=== PATIENT | male | born 1960 | race Caucasian/White ===

== ENCOUNTER 2020-10-23 19:07 | Emergency (ER) | payer MEDICARE, MEDICAID, SELFPAY ==
[2020-10-23 19:13] VITALS: BP 117/68; BP 125/64; PULSE 65; PULSE 72; RESP 18; TEMP 36.8; O2SAT 98; O2SAT 99; BMI 23.0
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
[2020-10-23 20:00] VITALS: BP 134/84; PULSE 81; RESP 18; O2SAT 99
[2020-10-23 20:15] LABS: Appearance Urine CLEAR; Color Urine YELLOW; Glucose Urine UA NEG (NEG); Leukocyte Esterase Urine NEG (NEG); Nitrite Urine NEG (NEG); PH 6.5 (5.0-8.0); Urine Blood NEG (NEG); Urine Ketones NEG (NEG); Urine Protein NEG (NEG-TRACE)
--- NOTE | 2020-10-23 20:24 | ECG_ITS ---
Test Reason : AMS Blood Pressure : / mmHG Vent. Rate : 074 BPM Atrial Rate : 074 BPM P-R Int : 158 ms QRS Dur : 080 ms QT Int : 396 ms P-R-T Axes : 069 006 044 degrees QTc Int : 439 ms Normal sinus rhythm Normal ECG When compared with ECG of 17-MAY-2007 10:06, QT has lengthened Referred By: Rudy Wolf Electronically Signed By:Brandt Bassett
--- NOTE | 2020-10-23 20:24 | CT_ITS ---
EXAMINATION: CT HEAD WITHOUT CONTRAST CLINICAL INFORMATION: Mental status change COMPARISON: MRI of the brain 02/02/2016 TECHNIQUE: Contiguous axial imaging was performed from the skull base to vertex without intravenous administration of contrast. Coronal and sagittal reformatted images are performed at CT scanner This CT examination was performed using dose optimization techniques as appropriate, variously including the following: *Automated exposure control *Adjustment of mA and/or kV according to patient size (this includes techniques or standardized protocols for targeted exams where dose is matched to indication/reason for exam; i.e. extremities or head) *Use of iterative reconstruction technique DLP: 659 mGy-cm FINDINGS: There is no evidence of acute intracranial hemorrhage or territorial infarction. No abnormal mass effect or midline shift is seen. [place] to white matter differentiation is well preserved. No extra-axial fluid collections are identified. There is atrophy with prominence of the ventricles and the sulci and hypodensity of the periventricular white matter due to chronic small vessel ischemic disease. There are vascular calcifications of the internal carotid arteries bilaterally. The osseous structures and soft tissues are normal. The mastoid air cells and visualized portions of the paranasal sinuses are well aerated. CT/CT head/brain wo con IMPRESSION: No acute intracranial pathology.
--- NOTE | 2020-10-23 20:24 | XR_ITS ---
EXAMINATION: XR CHEST CLINICAL INFORMATION: Mental status change COMPARISON: None TECHNIQUE: Frontal portable view of the chest was obtained. 2030 hours FINDINGS: No significant abnormality is noted involving the heart, lungs, mediastinum, bony thorax or soft tissues. XR/XR chest 1V IMPRESSION: Unremarkable examination.
[2020-10-23 20:37] LABS: RBC Urine 0 /HPF (0); WBC Urine 0 /HPF (0-4)
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
[2020-10-23 20:54] LABS: Amphetamine Screen Urine Not Detected (Not Detect); Barbiturates, Urine Not Detected (Not Detect); Benzodiazepines Screen Urine Not Detected (Not Detect); Cannabinoid Screen Urine Not Detected (Not Detect); Cocaine Screen Urine Not Detected (Not Detect); Opiate Screen Urine Not Detected (Not Detect); Phencyclidine Screen Urine Not Detected (Not Detect)
[2020-10-23 21:05] LABS: MANUAL DIFF FLAG NO
[2020-10-23 21:09] LABS: Basophils Percent Auto 0.4 % (0-2); Eosinophils Absolute Auto 0.2 X10*3/uL (0.0-0.4); Eosinophils Percent Auto 3.8 % (0-4); Hematocrit 30.4 % (42-52); Hemoglobin 10.1 g/dl (14.0-18.0); Imm Gran Abs Auto 0.01 X10*3/uL (0.00-0.03); Imm Gran Pct Auto 0.2 % (0.0-0.4); Lymphocytes Absolute Auto 1.6 X10*3/uL (1.2-4.9); Lymphocytes Percent Auto 29.4 % (20-40); Mean Corpuscular HGB Conc 33.2 g/dl (31.0-36.0); Mean Corpuscular Hemoglobin 29.7 pg (27.0-33.0); Mean Corpuscular Volume 89.4 fL (80-98); Mean Platelet Volume 9.4 fL (9.4-12.4); Monocytes Absolute Auto 0.7 X10*3/uL (0.1-1.2); Monocytes Percent Auto 12.6 % (2-11); Neutrophils Absolute Auto 2.9 X10*3/uL (2.0-8.3); Neutrophils Percent Auto 53.6 % (45-73); Platelet Count 161 X10*3/uL (160-400); Red Cell Distribution Width 14.5 % (11.0-16.0); White Blood Count 5.3 X10*3/uL (4.8-10.8)
[2020-10-23] MEDS: 0.9 % Sodium Chloride 1,000 ML 999 ML IVCONT (21:30)
[2020-10-23 21:31] LABS: Ethanol < 10 mg/dL
[2020-10-23 21:40] LABS: B Type Natriuretic Peptide 69 pg/mL (<100); Troponin-I High Sensitivity 5.8 ng/L (<3.5-35.0)
[2020-10-23 21:51] LABS: Alanine Aminotransferase 15 U/L (0-40); Albumin Level 3.4 g/dL (3.5-5.0); Alkaline Phosphatase 92 U/L (39-117); Anion Gap 11 (12-20); Aspartate Amino Transferase 20 U/L (5-37); Bilirubin Direct < 0.2 mg/dL (0.0-0.5); Bilirubin Total < 0.2 mg/dL (0.0-1.0); Blood Urea Nitrogen 27 mg/dL (9-16); Calcium 7.8 mg/dL (8.4-10.2); Carbon Dioxide 25 mmol/L (22-29); Chloride 107 mmol/L (96-108); Creatinine Clr Calc Pharmacy 71.2; Estimated Glomerular Filt Rate > 60; Glucose Random 115 mg/dL (60-115); Lipase 35 U/L (8-78); Potassium 3.8 mmol/l (3.3-5.1); Sodium 139 mmol/L (135-145); Total Protein 5.6 g/dL (6.5-8.0)
[2020-10-23 22:00] VITALS: BP 127/58; PULSE 82; RESP 18; TEMP 36.8; O2SAT 98
[2020-10-23 22:30] LABS: COVID-19 Test Negative (Negative); IDNOW Serial# 9DD0AD1C
== END 2020-10-23 23:29 | disposition home or self-care (01) ==
PROVIDERS: Emergency Provider Emergency Medicine
DX: R41.82 Altered mental status, unspecified (principal); Z20.822 Contact with and (suspected) exposure to COVID-19
CPT/HCPCS: 36415; 70450; 71045; 80048; 80076; 80307; 80320; 81001; 83690; 83880; 84484; 85025; 87635; 93005; 96360; 99284

== ENCOUNTER 2021-03-18 10:19 | Emergency (ER) | payer MEDICARE, MEDICAID, SELFPAY ==
--- NOTE | ~2021-03-18 | CT_ITS ---
EXAMINATION: CT HEAD WITHOUT CONTRAST CLINICAL INFORMATION: Confusion. COMPARISON: CT brain 10/23/2020 TECHNIQUE: Contiguous axial imaging was performed from the skull base to vertex without intravenous administration of contrast. This CT examination was performed using dose optimization techniques as appropriate, variously including the following: *Automated exposure control *Adjustment of mA and/or kV according to patient size (this includes techniques or standardized protocols for targeted exams where dose is matched to indication/reason for exam; i.e. extremities or head) *Use of iterative reconstruction technique DLP: 661 mGy-cm FINDINGS: There is no evidence of acute intracranial hemorrhage or territorial infarction. No abnormal mass effect or midline shift is seen. [place] to white matter differentiation is well preserved. No extra-axial fluid collections are identified. Lateral ventricles are symmetrical but enlarged. [place] to white matter difference is maintained normal. The osseous structures and soft tissues are normal. The mastoid air cells and visualized portions of the paranasal sinuses are well aerated. CT/CT head/brain wo con IMPRESSION: No acute intracranial process seen. No major change compared to previous study on 06/04/2021.
[2021-03-18 10:25] VITALS: BP 111/68; BP 111/78; PULSE 70; PULSE 71; RESP 16; TEMP 36.4; O2SAT 96; BMI 26.6
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
[2021-03-18 11:34] LABS: MANUAL DIFF FLAG NO
[2021-03-18 11:38] LABS: Amphetamine Screen Urine Not Detected (Not Detect); Barbiturates, Urine Not Detected (Not Detect); Benzodiazepines Screen Urine Not Detected (Not Detect); Cannabinoid Screen Urine Not Detected (Not Detect); Cocaine Screen Urine Not Detected (Not Detect); Opiate Screen Urine Not Detected (Not Detect); Phencyclidine Screen Urine Not Detected (Not Detect)
[2021-03-18 11:39] LABS: Basophils Percent Auto 0.5 % (0-2); Eosinophils Absolute Auto 0.1 X10*3/uL (0.0-0.4); Eosinophils Percent Auto 2.1 % (0-4); Hemoglobin 13.2 g/dl (14.0-18.0); Imm Gran Abs Auto 0.01 X10*3/uL (0.00-0.03); Imm Gran Pct Auto 0.3 % (0.0-0.4); Lymphocytes Absolute Auto 1.2 X10*3/uL (1.2-4.9); Lymphocytes Percent Auto 30.6 % (20-40); Mean Corpuscular Volume 84.9 fL (80-98); Mean Platelet Volume 9.5 fL (9.4-12.4); Monocytes Absolute Auto 0.4 X10*3/uL (0.1-1.2); Monocytes Percent Auto 11.1 % (2-11); Neutrophils Absolute Auto 2.1 X10*3/uL (2.0-8.3); Neutrophils Percent Auto 55.4 % (45-73); Platelet Count 158 X10*3/uL (160-400); Red Blood Count 4.71 X10*6/uL (4.60-5.80); Red Cell Distribution Width 13.9 % (11.0-16.0); White Blood Count 3.9 X10*3/uL (4.8-10.8)
[2021-03-18 11:54] LABS: COVID-19 Test Negative (Negative)
[2021-03-18 11:58] LABS: Ammonia 29 umol/L (13-55)
[2021-03-18 12:06] LABS: Alanine Aminotransferase 10 U/L (0-40); Albumin Level 4.2 g/dL (3.5-5.0); Alkaline Phosphatase 73 U/L (39-117); Anion Gap 10 (12-20); Aspartate Amino Transferase 12 U/L (5-37); Bilirubin Direct 0.2 mg/dL (0.0-0.5); Bilirubin Total 0.7 mg/dL (0.0-1.0); Blood Urea Nitrogen 19 mg/dL (9-16); Calcium 9.3 mg/dL (8.4-10.2); Carbon Dioxide 30 mmol/L (22-29); Chloride 104 mmol/L (96-108); Creatinine Clr Calc Pharmacy 53.9; Estimated Glomerular Filt Rate > 60; Glucose Random 91 mg/dL (60-115); Lipase 28 U/L (8-78); Potassium 4.5 mmol/L (3.3-5.1); Sodium 139 mmol/L (135-145); Total Protein 6.7 g/dL (6.5-8.0)
--- NOTE | 2021-03-18 12:32 | PC.NURSE ---
Pt medically cleared, faxed and called.
[2021-03-18 16:13] VITALS: BP 127/62; PULSE 60; RESP 16; TEMP 36.3; O2SAT 96
--- NOTE | 2021-03-18 18:24 | MHC.CARE ---
PT is awaiting [facility] Assessment. CARE Team spoke with [facility] to obtain information. Per Danielle at [facility], they are requesting a crisis assessment prior to Pt returning back to the facility. Pt is currently on a bed hold and welcome back. Pt was not re-directable today and became aggressive when attempting to elope. Pt is not currently on locked dementia unit which is ultimately the plan however has been difficult finding a different placement as Pt and family want him to be closer to the [place] area. Pt has an invoked HCP. Please follow up with Roseann and/or Danielle at [facility] [phone]
[2021-03-19 06:16] VITALS: BP 118/64; PULSE 68; RESP 16; TEMP 36.6; O2SAT 94
[2021-03-19 07:55] VITALS: BP 126/83; PULSE 67; RESP 19; TEMP 36.5; O2SAT 99
--- NOTE | 2021-03-19 07:56 | PC.NURSE ---
Spoke with OSWALDO, Ag states someone will be out to evaluate Carlos on first shift today. Pt calm, cooperative at this time. Will continue to monitor.
[2021-03-19 12:27] LABS: Glucose Urine UA NEG (NEG); Leukocyte Esterase Urine NEG (NEG); Nitrite Urine NEG (NEG); Specific Gravity - Urine 1.015 (1.005-1.025); Urine Blood NEG (NEG); Urine Ketones NEG (NEG); Urine Protein NEG (NEG-TRACE)
[2021-03-19 12:30] LABS: Appearance Urine CLEAR; Color Urine YELLOW
--- NOTE | 2021-03-19 16:29 | MHC.CARE ---
CARE Team meets with pt for assessment, as the local [facility] team is not able to respond. Pt is laying in bed, watching TV. Per nursing staff and chart review, pt has been calm, cooperative and pleasant throughout his time in the ED. He was sent from [facility] due to increased agitation/ aggressive toward staff. CARE Team speaks with Danielle from [facility], who reports that pt is confused and disoriented at baseline due to dementia. Danielle states that pt becomes dysregulated when he gets confused, attempts to leave the unit, and is redirected by staff. During these instances he can becomes aggressive with staff and yells. Danielle does not feel that [facility] can provide the care that pt needs. Danielle states that she attempted to have pt transferred to a facility in [place], [place] with a locked unit, however, family did not want pt placed that far away. When CARE Team meets with pt is oriented to person only. He knows he is in a hospital, but does not know where. When asked the year he states, January I think. He does not know why he is here, but acknowledges that he was upset prior to coming to the ED. He expresses remorse, however, cannot recall what he did. He states I am a peaceful person and I am a [employer]. When asked if he would like to return to [facility], he states that he does not know. He denies SI/HI/AVH. Pt does not meet criteria for IPLOC. Psychiatric admission is not likely to midigate prsenting problems, which relate to worsening dementia. CARE Team makes several attempts to reach out to pt's brother, Easton, who is the health care proxy. Danielle from [facility] states that she does not feel that [facility] is a good fit for pt and she is wondering if a placement change can be made from the ED. CARE Team speaks with WINSOME Nath, who agrees that pt should be seen by case management. CARE Team communicates relevant information to Mary Grace from [facility].
--- NOTE | 2021-03-19 16:31 | PC.NURSE ---
Pt sitting in room calmly. No sign of distress at this time. Respirations even/unlabored bilaterally. Will continue to monitor.
--- NOTE | 2021-03-19 17:16 | MHC.CM.ED ---
Unable to reach Danielle at [facility], despite 2 calls. Unable to reach HCP Easton. Unable to leave message. Return booked through [facility]. [facility] accepted pt return. Ambulance booked. Upon further investigation, CM is unsure if facility will accept pt return. Will hold ambulance until able to reach someone from [facility]. RN aware.
--- NOTE | 2021-03-19 18:09 | MHC.CM.ED ---
ALESSANDRO made calls to Danielle at [facility] at [phone] and [phone] regarding clearance for pt to return to [facility] based on previous CARE team notes about concerns that pt needs a locked unit. ORE TRIMMER and RN aware that pt will remain in ED pending pt acceptance cleared from Danielle at [facility]. CM spoke with HCP/brother Easton regarding above at 1755. Per Easton, he makes the health care decisions, as the HCP has been invoked. [facility] explained concerns regarding whether or not [facility] was accepting his brother back to the facility, since there was documentation in the record that [facility] felt his brother needed a locked unit. Easton is agreeable to having his brother go to a locked unit, but he wants him local, so he can visit him. Explained that not all facilities have locked units. ALESSANDRO explained to Easton that it would be best to first see if [facility] will accept him back. If not, then referrals can be placed to facilities with locked units. Easton requests that CM call him when we know where his brother will be going. Easton given direct number to reach CM in the ED. CM will follow for d/c needs.
[2021-03-19 18:30] VITALS: BP 142/97; PULSE 86; RESP 20; TEMP 36.4; O2SAT 98
--- NOTE | 2021-03-19 20:13 | MHC.CM.ED ---
CM has not received return call from [facility]. Will need to reach out in the am to [facility] to confirm that pt can return to facility. NANCI Delgado spoke with pt about need to remain in ED tonight. CM to follow for d/c needs.
--- NOTE | 2021-03-19 21:00 | PC.NURSE ---
PT WAKES TO VOICE FOR MEDICATION PER EMAR. PT DENIES ANY COMPLAINTS AND FALLS BACK TO SLEEP. PT REMAINS COOPERATIVE IN THE POD. WILL CONTINUE TO MONITOR PT.
[2021-03-19] MEDS: levETIRAcetam 500 MG TABLET PO (21:42)
[2021-03-19 22:00] VITALS: RESP 16
--- NOTE | 2021-03-19 22:39 | PC.NURSE ---
PT REMAINS SLEEPING IN BH #4. PT IN NAD AND WILL CONTINUE TO MONITOR PT.
[2021-03-20] MEDS: Omeprazole 20 MG CAPSULE.DR PO (05:35)
--- NOTE | 2021-03-20 06:02 | PC.NURSE ---
PT UP FEW TIMES DURING THE NIGHT AND ASKED THE SAME QUESTION DO YOU KNOW WHERE MY SHOES ARE AND WHEN CAN I GET DISCHARGED FROM HERE PT ALSO GETS CONFUSED WHICH ROOM IS HIS. PT IS REDIRECTED. PT REMAINS CALM AND COOPERATIVE AT THIS TIME. WILL CONTINUE TO MONITOR PT.
--- NOTE | 2021-03-20 06:05 | PC.NURSE ---
PT MEDICATED PER EMAR.
--- NOTE | 2021-03-20 07:25 | PC.NURSE ---
Pt awake and alert. Bkfst eaten. Amb to [facility]. Awaiting care team for dispo
[2021-03-20 08:45] VITALS: BP 121/71; PULSE 68; RESP 18; TEMP 36.3; O2SAT 98
[2021-03-20] MEDS: Cholecalciferol (Vitamin D3) 25 MCG TABLET PO (09:11)
[2021-03-20] MEDS: Cyanocobalamin (Vitamin B-12) 500 MCG TABLET PO (09:11)
[2021-03-20 09:12] VITALS: BP 121/71; PULSE 68
[2021-03-20] MEDS: lisinopriL 2.5 MG TABLET PO (09:12)
[2021-03-20] MEDS: Atorvastatin Calcium 10 MG TABLET PO (09:12)
[2021-03-20] MEDS: levETIRAcetam 500 MG TABLET PO (09:12)
--- NOTE | 2021-03-20 09:18 | MHC.CM.ED ---
pt is returning to [facility] at 10 am via action. attempt to call pt's brother to notify him of dc was made, however the number listing in emr was not a working number . , rn are aware of dc plan. cm to cont. to follow.
--- NOTE | 2021-03-20 09:21 | PC.NURSE ---
Call to [facility]. No answer
--- NOTE | 2021-03-21 12:22 | MHC.CM.ED ---
PT'S brother, joelle, called looking for him. he said that we had the wrong contact ph no. in our emr. the correct ph no. for joelle is ph: [phone]. cm to cont. to follow.
== END 2021-03-20 10:09 | disposition skilled nursing facility (03) ==
PROVIDERS: Emergency Provider Emergency Medicine; PCP Internal Medicine
DX: R41.82 Altered mental status, unspecified (principal); F01.50 Vascular dementia, unspecified severity, without behavioral disturbance, psychotic disturbance, mood disturbance, and anxiety; G40.909 Epilepsy, unspecified, not intractable, without status epilepticus; Z79.899 Other long term (current) drug therapy; Z20.822 Contact with and (suspected) exposure to COVID-19
CPT/HCPCS: 36415; 70450; 80048; 80076; 80307; 81003; 82140; 83690; 83735; 85025; 87635; 99285

== ENCOUNTER 2021-06-26 15:54 | Observation (INO) | payer MEDICARE, MEDICAID, SELFPAY ==
--- NOTE | ~2021-06-26 | XR_ITS ---
EXAMINATION: XR CHEST CLINICAL INFORMATION: Change in mental status. COMPARISON: Most recent prior study done on 10/23/2020. TECHNIQUE: Frontal view of the chest was obtained. FINDINGS: No significant abnormality is noted involving the heart, lungs, mediastinum, bony thorax or soft tissues. XR/XR chest 1V IMPRESSION: Unremarkable examination. No significant change since 10/23/2020.
--- NOTE | ~2021-06-26 | MR_ITS ---
MR BRAIN WITHOUT AND WITH CONTRAST CLINICAL INFORMATION: Confusion. Gait abnormality. COMPARISON: CTA head and neck and head CT 06/26/2021. TECHNIQUE: Multiplanar, multisequence MRI of the brain was obtained before and after the intravenous administration of 8.5 mL Gadavist. FINDINGS: There is no pathologic intracranial enhancement. Incidental developmental venous anomaly within the right frontal lobe. There is CSF flow artifact within the third ventricle and the fourth ventricle. 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 There is global cerebral volume loss and there is mild chronic microangiopathy. There is no hydrocephalus, extra-axial surface collection, or herniation. The major flow voids at the skull base are preserved. There is no acute infarct on diffusion-weighted imaging. There is no intracranial hemorrhage on the gradient recalled echo acquisition. The midline structures are normal. The cerebellar tonsils are normally positioned. The cerebellum and brainstem are normal. The craniocervical junction is normal. Osseous marrow signal intensity is homogenous. The visualized soft tissues are unremarkable. MR/MR head/brain wo/w con IMPRESSION: - No acute intracranial findings. No enhancing lesions. No acute infarcts. 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
--- NOTE | ~2021-06-26 | CT_ITS ---
EXAMINATION: CT HEAD WITHOUT CONTRAST (STROKE PROTOCOL) CLINICAL INFORMATION: Stroke protocol. Lack of balance, slurred speech. COMPARISON: Head CT from 03/18/2021. TECHNIQUE: Contiguous axial imaging was performed from the skull base to vertex without intravenous administration of contrast. This CT examination was performed using dose optimization techniques as appropriate, variously including the following: *Automated exposure control *Adjustment of mA and/or kV according to patient size (this includes techniques or standardized protocols for targeted exams where dose is matched to indication/reason for exam; i.e. extremities or head) *Use of iterative reconstruction technique DLP: 681 mGy-cm FINDINGS: No acute findings. The ritter-white matter differentiation is well preserved. No evidence of an acute major vascular territory infarction. No dense cerebral artery sign. No intracranial hemorrhage, extra-axial fluid collection, focal mass effect or midline shift. Mild cerebral volume loss is associated with commensurate prominence of ventricles and sulci; no hydrocephalus. The brainstem and cerebellum have a normal appearance. The cerebellar tonsils are in normal position. The calvarium is intact. The visualized paranasal sinuses, mastoid air cells and middle ear cavities are well aerated. Prior ocular lens replacements. The temporomandibular joints are unremarkable. CT/CT head for stroke IMPRESSION: No evidence of hemorrhage or acute major vascular territory infarction. No acute findings compared to the prior head CT from 03/18/2021. This critical result was discussed Dr. Fontanez at 4:17 pm on 06/26/2021. It was ascertained that the content and urgency of the report was understood at the time of direct communication.
--- NOTE | ~2021-06-26 | CT_ITS ---
EXAMINATION: CT ANGIOGRAM OF THE HEAD CT ANGIOGRAM OF THE NECK CLINICAL INFORMATION: Assess for large vessel occlusion. COMPARISON: CT scan of the head obtained earlier 06/26/2021. MRI scan of the brain 02/02/2016. TECHNIQUE: Test bolus series followed by intravenous administration 70 mL of Omnipaque 350. Helical imaging was performed in the axial plane from the mediastinum to the skull vertex. A [address] head was obtained. The degree of stenosis is based off NASCET criteria. The data was processed at the engineering technologist workstation for generation of MIP images. Three-dimensional volume rendered reformatted images were also generated at an offline 3-D workstation. This CT examination was performed using dose optimization techniques as appropriate, variously including the following: *Automated exposure control *Adjustment of mA and/or kV according to patient size (this includes techniques or standardized protocols for targeted exams where dose is matched to indication/reason for exam; i.e. extremities or head) *Use of iterative reconstruction technique DLP: 1479 mGy-cm. FINDINGS: CT Head: There is no evidence of acute intracranial hemorrhage or territorial infarction. No abnormal mass-effect or midline shift is seen. [place] to white matter differentiation is well preserved. No extra-axial fluid collections are identified. There is no abnormal enhancement. There is mild commensurate prominence of the ventricles and sulci consistent with diffuse volume loss. Brain parenchymal attenuation is unremarkable. The osseous structures and soft tissues are normal. The mastoid air cells are well-aerated. There is mucoperiosteal thickening in the right maxillary sinus. CTA Neck: There is a classic configuration of the arch of the aorta. The great vessels of the neck are widely patent. The subclavian arteries appear normal bilaterally. The common carotid arteries have normal caliber. The carotid bifurcations bilaterally appear normal. The internal carotid arteries in the neck bilaterally have uniform and normal caliber. The origins of both vertebral arteries are well seen and appear normal. Both vertebral arteries are widely patent and demonstrate good opacification throughout their cervical course. The vertebral arteries are codominant. Nonvascular: There is mild dependent atelectasis in the posterior lung zarate bilaterally. There are mild emphysematous changes bilaterally. There is no cervical lymphadenopathy. The thyroid gland appears normal. There are moderate spondylitic changes in the cervical spine with narrowing of intervertebral disc height with vacuum changes at C3-C4, C5-C6 and C6-C7. There are mild facet arthropathic changes at multiple levels. CTA Head: There are minimal atheromatous calcifications of the cavernous internal carotid arteries bilaterally. The vessels are patent. The middle and anterior cerebral arteries bilaterally demonstrate normal caliber with no evidence of focal stenosis, aneurysm or vascular malformation. There is normal arborization of the middle cerebral artery branches. The anterior communicating artery is normal. In the posterior circulation, the vertebral arteries are codominant. The vertebral arteries intradurally have normal caliber. The basilar artery appears normal. The posterior cerebral arteries have normal caliber. The venous sinuses opacify normally. CT/CT angio head neck stroke IMPRESSION: CT head and neck: 1. There are no acute bleeds or infarcts. There are no masses or areas of abnormal enhancement. 2. There is mild diffuse volume loss. 3. There is no cervical lymphadenopathy. There are emphysematous changes in the upper lung zarate. CTA head and neck: 1. The vertebral and carotid arteries in the neck, likely patent without flow-limiting stenosis. There is no significant atheromatous disease in the neck. 2. Intracranially there are no focal stenoses, aneurysms or vascular malformations. Minimal atheromatous changes are seen in the cavernous internal carotid arteries bilaterally. This critical result was discussed with Jonathon Fontanez MD by telephone on 06/26/2021 at 4:50 PM and it was ascertained that the content and urgency of the report was understood at the time of direct communication.
--- NOTE | 2021-06-26 15:58 | ECG_ITS ---
Test Reason : STROKE Blood Pressure : / mmHG Vent. Rate : 061 BPM Atrial Rate : 061 BPM P-R Int : 146 ms QRS Dur : 088 ms QT Int : 412 ms P-R-T Axes : 040 -13 031 degrees QTc Int : 414 ms Normal sinus rhythm Normal ECG When compared with ECG of 23-OCT-2020 21:22, No significant change was found Referred By: Jonathon Fontanez Electronically Signed By:CHANDRIKA BROWN
[2021-06-26 16:14] VITALS: BP 138/58; PULSE 70; O2SAT 100
[2021-06-26] MEDS: iohexoL 350 MG/ML 100 ML INFUS..BTL IV (16:14)
[2021-06-26 16:31] LABS: Glucose, Whole Blood 74 mg/dL (60-115)
[2021-06-26 16:40] LABS: Prothrombin Time Whole Bld POC 12.9 sec (11.1-13.5); ~PT, ~INR - Anti Coag Clinic 1.1 (0.9-1.1)
[2021-06-26 16:45] VITALS: BP 121/64; PULSE 63; RESP 14; TEMP 36.8; O2SAT 100; BMI 30.3
[2021-06-26 16:48] LABS: MANUAL DIFF FLAG NO
[2021-06-26 16:49] LABS: Basophils Percent Auto 0.2 % (0-2); Eosinophils Absolute Auto 0.2 X10*3/uL (0.0-0.4); Eosinophils Percent Auto 3.3 % (0-4); Hematocrit 39.6 % (42-52); Hemoglobin 13.4 g/dl (14.0-18.0); Imm Gran Abs Auto 0.01 X10*3/uL (0.00-0.03); Imm Gran Pct Auto 0.2 % (0.0-0.4); Lymphocytes Absolute Auto 1.4 X10*3/uL (1.2-4.9); Lymphocytes Percent Auto 30.7 % (20-40); Mean Corpuscular HGB Conc 33.8 g/dl (31.0-36.0); Mean Corpuscular Hemoglobin 28.6 pg (27.0-33.0); Mean Corpuscular Volume 84.4 fL (80-98); Mean Platelet Volume 9.6 fL (9.4-12.4); Monocytes Absolute Auto 0.5 X10*3/uL (0.1-1.2); Monocytes Percent Auto 11.6 % (2-11); Neutrophils Absolute Auto 2.5 X10*3/uL (2.0-8.3); Platelet Count 165 X10*3/uL (160-400); Red Blood Count 4.69 X10*6/uL (4.60-5.80); Red Cell Distribution Width 13.4 % (11.0-16.0); White Blood Count 4.6 X10*3/uL (4.8-10.8)
--- NOTE | 2021-06-26 16:57 | ED_ITS ---
HPI - Neuro Symptoms/Deficit General Chief Complaint: Stroke Stated Complaint: STROKE ALERT Time Seen by Provider: 06/26/21 15:57 Source: patient and EMS Mode of arrival: EMS Limitations: other (Patient has vascular dementia but does answer questions appropriately) History of Present Illness HPI Narrative: 61-year-old male who was brought to the emergency department by ambulance for evaluation of difficulty speaking and difficulty walking. The patient is currently at [facility] long term [facility]. The facility was unable to verify a last well-known time. The paramedics state that the patient is normally able to walk without any difficulty. The patient was found to be off balance, very unsteady on his feet and his speech seemed to be changed from his baseline. The facility was concerned that the patient had a stroke and had the patient transported to the emergency department. I evaluated the patient upon arrival. The patient was oriented to person and place. He had no complaints. His speech was comprehensible but occasionally did not make sense. The patient had normal strength bilaterally but did appear to have ataxia was upper extremities. The patient was sent directly to CT scan for stroke workup and for CT scan of the head without contrast and CT angiogram of the head and neck. Related Data Home Medications Medication Instructions Recorded Confirmed atorvastatin 10 mg tablet 10 mg PO DAILY 03/18/21 03/18/21 cholecalciferol (vitamin D3) 25 25 mcg PO DAILY 03/18/21 03/18/21 mcg (1,000 unit) tablet cyanocobalamin (vitamin B-12) 500 500 mcg PO DAILY 03/18/21 03/18/21 mcg tablet levetiracetam 500 mg tablet 500 mg PO BID 03/18/21 03/18/21 lisinopril 2.5 mg tablet 2.5 mg PO DAILY 03/18/21 03/18/21 omeprazole 20 mg capsule,delayed 20 mg PO DAILY 03/18/21 03/18/21 release vitamin B complex 1 cap PO DAILY 03/18/21 03/18/21 Allergies Allergy/AdvReac Type Severity Reaction Status Date / Time Unable to Assess Allergy Verified 10/23/20 20:05 Review of Systems Review of Systems: Yes all other systems are reviewed and are negative PMFSH Past Medical History PMF Narrative: Social history: The patient lives in a long term facility. He denies tobacco use. He denies alcohol use. He denies drug use. Medical History Epilepsy Vascular dementia Social History Social History Alcohol intake: former Patient Tobacco Use Status: Former Tobacco user Use of substances other than those prescribed or required for medical reasons: No Advance Directives: No Advance Directives Information Provided: No Physical Exam Vital Signs: Vital Signs: Last Vital Signs Temp 98.3 F 06/26/21 16:45 Pulse 63 06/26/21 16:45 Resp 14 06/26/21 16:45 BP 121/64 06/26/21 16:45 Pulse Ox 100 06/26/21 16:45 Body Mass Index 30.3 Const: Other: Awake, alert, male, oriented to person, he knows that he is at [facility], answers questions appropriately and follows commands, occasionally his answers do not make sense to the question that was asked. Orientation/consciousness: oriented to person and oriented to place HENMT: Head: Yes normal to inspection, Yes normocephalic and Yes atraumatic Ears: external ears normal General nose exam: Normal external nose present Face and sinus: Yes normal facial exam Mouth: Normal oral and palatal mucosa present Throat: Yes posterior oropharynx normal Eyes: General: appearance normal, both eyes and all related structures Pupils: Equal, round and reactive pupils present Neck: Neck: Yes normal visual inspection, Yes no lymphadenopathy, Yes trachea midline and Yes supple Chest: Chest palpation & inspection: normal inspection of the chest and normal palpation of entire chest wall Resp: Effort & Inspection: normal respiratory effort and able to speak in complete sentences Auscultation: clear to auscultation bilaterally Cardio: Rate: regular rate Rhythm: regular rhythm Heart sounds: S1 normal heart sound present, S2 normal heart sound present and no murmurs GI: Inspection: Yes normal to inspection Palpation (GI): Soft to palpation, nontender and no guarding Auscultation: normal bowel sounds : General: Yes no CVA tenderness Back/Spine/Pelvis: Back: no CVA tenderness Skin: General skin exam: no rashes or lesions noted Neuro: General: oriented to person and oriented to place Cranial nerves: Yes CN's II-XII intact bilaterally and Yes Equal, round and reactive pupils present Cognition (Neuro): normal cognition Gait exam (Neuro): Ataxic gait present and Wide-based gait present Motor exam (neuro): 5/5 motor strength present throughout Coordination: No [id number] test normal (Past pointing with both right and left upper extremity), No [id number] test normal (Patient unable to perform tasks) and No Normal rapid alternating movements of the distal upper extremity present (Neuro) Extrem: General: Yes normal to inspection Psych: Appearance: grossly normal Affect: normal affect Attitude: cooperative Course Course Course Narrative: 61 year-old male who was sent from his long term facility for change in his speech pattern and new inability to walk, patient was poor to be off balance. Patient's point of care glucose was 74. Patient's vital signs were normal. Physical examination did reveal for finger nose to finger and for rapid movement of both upper extremities, the patient was standing with a wide-based and was unable to take a step secondary to ataxia and being off balance. CT scan of the brain revealed no acute finding. CTA of the head and neck was unremarkable. Twelve EKG revealed no a arrhythmias/atrial fib /flutter. And concerned the patient may have had a cerebellar stroke given his new onset ataxia. Patient does have a seizure disorder it is possible he may have had a non witnessed seizure as well. I will discuss these findings with the covering neurologist. 1719: The patient's CT scan of the head was negative for stroke or bleed. CT a of the head and neck revealed no acute finding. I did discuss the patient's presentation with the covering neurologist, Dr. Augustin. Given the unknown last well time and the potential for this being a post seizure type symptom verses cerebellar stroke, he did not believe that the patient was a tPA candidate and I agree with this assessment. The neurologist recommended the patient be admitted for further evaluation and workup. Laboratory evaluation: CBC revealed a low WBC of 4600, mild anemia with an H&H of 13.4 and 39.6. Platelet count was normal 165,000. Coag studies were normal. CK was normal. High sensitivity troponin I was detectable at 4.0 but not elevated. Twelve EKG was unremarkable. COVID-19 test is pending. I will discuss the patient's presentation with the covering hospitalist. 1935: I did discuss the patient's presentation with the covering hospitalist, Dr. Camilo and the patient will be admitted for further evaluation. MDM - Neuro Symptoms/Deficit Lab Data Result diagrams: 06/26/21 16:40 06/26/21 16:40 Labs: Lab Results 06/26/21 06/26/21 06/26/21 Range/Units 16:28 16:36 16:40 WBC (4.8-10.8) X10*3/uL RBC (4.60-5.80) X10*6/uL Hgb (14.0-18.0) g/dl Hct (42-52) % MCV (80-98) fL MCH (27.0-33.0) pg MCHC (31.0-36.0) g/dl RDW (11.0-16.0) % Plt Count (160-400) X10*3/uL MPV (9.4-12.4) fL Immature Gran % (Auto) (0.0-0.4) % Neut % (Auto) (45-73) % Lymph % (Auto) (20-40) % [place] % (Auto) (2-11) % Eos % (Auto) (0-4) % Baso % (Auto) (0-2) % Lymph # (Auto) (1.2-4.9) X10*3/uL [place] # (Auto) (0.1-1.2) X10*3/uL Eos # (Auto) (0.0-0.4) X10*3/uL Baso # (Auto) (0.0-0.2) X10*3/uL Abs Immat Gran (auto) (0.00-0.03) X10*3/uL Absolute Neuts (auto) (2.0-8.3) X10*3/uL Absolute Nucleated RBC (0.0-0.012) X10*3/uL Nucleated RBC % (auto) (0.0-0.2) /100WBC PT (9.9-13.0) SEC Whole Blood PT 12.9 (11.1-13.5) sec INR (0.9-1.1) Whole Blood INR 1.1 (0.9-1.1) APTT (24.1-38.0) SEC Sodium (135-145) mmol/L Potassium (3.3-5.1) mmol/L Chloride (96-108) mmol/L Carbon Dioxide (22-29) mmol/L Anion Gap (12-20) BUN (9-16) mg/dL Creatinine (0.5-1.4) mg/dL Estim Creat Clear Calc Estimated GFR POC Glucose 74 (60-115) mg/dL Random Glucose (60-115) mg/dL Calcium (8.4-10.2) mg/dL Total Bilirubin 0.4 (0.0-1.0) mg/dL Direct Bilirubin 0.2 (0.0-0.5) mg/dL AST 18 D (5-37) U/L ALT 16 (0-40) U/L Alkaline Phosphatase 76 (39-117) U/L Total Creatine Kinase (38-174) U/L Troponin I High Sens (<3.5-35.0) ng/L Total Protein 7.0 (6.5-8.0) g/dL Albumin 4.2 (3.5-5.0) g/dL Urine Color Urine Appearance Urine pH (5.0-8.0) Ur Specific [place] (1.005-1.025) Urine Protein (NEG-TRACE) MG/DL Urine Glucose (UA) (NEG) MG/DL Urine Ketones (NEG) MG/DL Urine Blood (NEG) Urine Nitrite (NEG) Ur Leukocyte Esterase (NEG) Ethyl Alcohol mg/dL 06/26/21 06/26/21 06/26/21 Range/Units 16:40 16:40 16:40 WBC 4.6 L (4.8-10.8) X10*3/uL RBC 4.69 (4.60-5.80) X10*6/uL Hgb 13.4 L (14.0-18.0) g/dl Hct 39.6 L (42-52) % MCV 84.4 (80-98) fL MCH 28.6 (27.0-33.0) pg MCHC 33.8 (31.0-36.0) g/dl RDW 13.4 (11.0-16.0) % Plt Count 165 (160-400) X10*3/uL MPV 9.6 (9.4-12.4) fL Immature Gran % (Auto) 0.2 (0.0-0.4) % Neut % (Auto) 54.0 (45-73) % Lymph % (Auto) 30.7 (20-40) % [place] % (Auto) 11.6 H (2-11) % Eos % (Auto) 3.3 (0-4) % Baso % (Auto) 0.2 (0-2) % Lymph # (Auto) 1.4 (1.2-4.9) X10*3/uL [place] # (Auto) 0.5 (0.1-1.2) X10*3/uL Eos # (Auto) 0.2 (0.0-0.4) X10*3/uL Baso # (Auto) 0.0 (0.0-0.2) X10*3/uL Abs Immat Gran (auto) 0.01 (0.00-0.03) X10*3/uL Absolute Neuts (auto) 2.5 (2.0-8.3) X10*3/uL Absolute Nucleated RBC 0.000 (0.0-0.012) X10*3/uL Nucleated RBC % (auto) 0.0 (0.0-0.2) /100WBC PT 11.6 (9.9-13.0) SEC Whole Blood PT (11.1-13.5) sec INR 1.0 (0.9-1.1) Whole Blood INR (0.9-1.1) APTT 34.5 (24.1-38.0) SEC Sodium 138 (135-145) mmol/L Potassium 4.6 (3.3-5.1) mmol/L Chloride 103 (96-108) mmol/L Carbon Dioxide 28 (22-29) mmol/L Anion Gap 12 (12-20) BUN 18 H (9-16) mg/dL Creatinine 1.27 (0.5-1.4) mg/dL Estim Creat Clear Calc 63.3 Estimated GFR 58 POC Glucose (60-115) mg/dL Random Glucose 89 (60-115) mg/dL Calcium 9.5 (8.4-10.2) mg/dL Total Bilirubin (0.0-1.0) mg/dL Direct Bilirubin (0.0-0.5) mg/dL AST (5-37) U/L ALT (0-40) U/L Alkaline Phosphatase (39-117) U/L Total Creatine Kinase 92 (38-174) U/L Troponin I High Sens (<3.5-35.0) ng/L Total Protein (6.5-8.0) g/dL Albumin (3.5-5.0) g/dL Urine Color Urine Appearance Urine pH (5.0-8.0) Ur Specific [place] (1.005-1.025) Urine Protein (NEG-TRACE) MG/DL Urine Glucose (UA) (NEG) MG/DL Urine Ketones (NEG) MG/DL Urine Blood (NEG) Urine Nitrite (NEG) Ur Leukocyte Esterase (NEG) Ethyl Alcohol mg/dL 06/26/21 06/26/21 06/26/21 Range/Units 16:40 16:41 17:19 WBC (4.8-10.8) X10*3/uL RBC (4.60-5.80) X10*6/uL Hgb (14.0-18.0) g/dl Hct (42-52) % MCV (80-98) fL MCH (27.0-33.0) pg MCHC (31.0-36.0) g/dl RDW (11.0-16.0) % Plt Count (160-400) X10*3/uL MPV (9.4-12.4) fL Immature Gran % (Auto) (0.0-0.4) % Neut % (Auto) (45-73) % Lymph % (Auto) (20-40) % [place] % (Auto) (2-11) % Eos % (Auto) (0-4) % Baso % (Auto) (0-2) % Lymph # (Auto) (1.2-4.9) X10*3/uL [place] # (Auto) (0.1-1.2) X10*3/uL Eos # (Auto) (0.0-0.4) X10*3/uL Baso # (Auto) (0.0-0.2) X10*3/uL Abs Immat Gran (auto) (0.00-0.03) X10*3/uL Absolute Neuts (auto) (2.0-8.3) X10*3/uL Absolute Nucleated RBC (0.0-0.012) X10*3/uL Nucleated RBC % (auto) (0.0-0.2) /100WBC PT (9.9-13.0) SEC Whole Blood PT (11.1-13.5) sec INR (0.9-1.1) Whole Blood INR (0.9-1.1) APTT (24.1-38.0) SEC Sodium (135-145) mmol/L Potassium (3.3-5.1) mmol/L Chloride (96-108) mmol/L Carbon Dioxide (22-29) mmol/L Anion Gap (12-20) BUN (9-16) mg/dL Creatinine (0.5-1.4) mg/dL Estim Creat Clear Calc Estimated GFR POC Glucose (60-115) mg/dL Random Glucose (60-115) mg/dL Calcium (8.4-10.2) mg/dL Total Bilirubin (0.0-1.0) mg/dL Direct Bilirubin (0.0-0.5) mg/dL AST (5-37) U/L ALT (0-40) U/L Alkaline Phosphatase (39-117) U/L Total Creatine Kinase (38-174) U/L Troponin I High Sens 4.0 (<3.5-35.0) ng/L Total Protein (6.5-8.0) g/dL Albumin (3.5-5.0) g/dL Urine Color YELLOW Urine Appearance CLEAR Urine pH 6.0 (5.0-8.0) Ur Specific [place] <= 1.005 (1.005-1.025) Urine Protein NEG (NEG-TRACE) MG/DL Urine Glucose (UA) NEG (NEG) MG/DL Urine Ketones NEG (NEG) MG/DL Urine Blood NEG (NEG) Urine Nitrite NEG (NEG) Ur Leukocyte Esterase NEG (NEG) Ethyl Alcohol < 10 mg/dL Discharge Plan Discharge Prescriptions: No [facility] atorvastatin 10 mg tablet 10 mg PO DAILY RF: 0 levetiracetam 500 mg tablet 500 mg PO BID RF: 0 cyanocobalamin (vitamin B-12) 500 mcg Tablet 500 mcg PO DAILY RF: 0 omeprazole 20 mg Capsule,Delayed Release(Dr/Ec) 20 mg PO DAILY RF: 0 lisinopril 2.5 mg Tablet 2.5 mg PO DAILY RF: 0 vitamin B complex [B Complex] Capsule 1 cap PO DAILY RF: 0 cholecalciferol (vitamin D3) 25 mcg (1,000 unit) Tablet 25 mcg PO DAILY RF: 0
[2021-06-26 16:59] LABS: Prothrombin Time 11.6 SEC (9.9-13.0)
[2021-06-26 17:02] LABS: Partial Thromboplastin Time 34.5 SEC (24.1-38.0); Stroke Lab Use COMPLETE
[2021-06-26 17:05] LABS: Ethanol < 10 mg/dL
[2021-06-26 17:06] LABS: Anion Gap 12 (12-20); Blood Urea Nitrogen 18 mg/dL (9-16); Calcium 9.5 mg/dL (8.4-10.2); Carbon Dioxide 28 mmol/L (22-29); Chloride 103 mmol/L (96-108); Creatinine Clr Calc Pharmacy 63.3; Estimated Glomerular Filt Rate 58; Glucose Random 89 mg/dL (60-115); Potassium 4.6 mmol/L (3.3-5.1); Sodium 138 mmol/L (135-145)
[2021-06-26 17:24] LABS: Appearance Urine CLEAR; Color Urine YELLOW; Glucose Urine UA NEG (NEG); Leukocyte Esterase Urine NEG (NEG); Nitrite Urine NEG (NEG); Specific Gravity - Urine <= 1.005 (1.005-1.025); Urine Blood NEG (NEG); Urine Ketones NEG (NEG); Urine Protein NEG (NEG-TRACE)
[2021-06-26 17:24] LABS: Alanine Aminotransferase 16 U/L (0-40); Albumin Level 4.2 g/dL (3.5-5.0); Alkaline Phosphatase 76 U/L (39-117); Aspartate Amino Transferase 18 U/L (5-37); Bilirubin Direct 0.2 mg/dL (0.0-0.5); Bilirubin Total 0.4 mg/dL (0.0-1.0)
[2021-06-26 17:41] LABS: COVID-19 Test Negative (Negative); IDNOW Serial# 9DD0AD1C
--- NOTE | 2021-06-26 18:00 | PM.IMHP ---
History of Present Illness Date of Service: 06/26/21 Chief Complaint: Abnormal gait, abnormal speech A 61 years old male with PMH of HTN, HLD, seizure disorder who presents to the hospital with abnormal gait and speech. The patient resides SNF. He was seen a clear in the morning walking fine but was found later during the day very unsteady and off balance with his speech seems to be different from baseline and worse. Concerned about a stroke in the facility so EMS was called and they brought the patient back to the hospital. Unclear timing as the patient has underlying dementia a so we could not know exactly wanted his symptoms started. He is very difficult to understand given the way he speak. He denies any weakness any part of his body, headache, fever, chills, falls or syncope. A CT scan and CTA of head and neck were negative for any acute findings. Review of Systems Review of Systems: No fever, chills or focal weakness No chest pain, palpitation Yes all other systems are reviewed and are negative [facility] Medical History (Updated 06/26/21 @ 18:07 by David Camilo MD) Epilepsy Vascular dementia Social History Alcohol intake: former Patient Tobacco Use Status: Former Tobacco user Use of substances other than those prescribed or required for medical reasons: No Advance Directives: No Advance Directives Information Provided: No Meds Allergies Allergy/AdvReac Type Severity Reaction Status Date / Time Unable to Assess Allergy Verified 10/23/20 20:05 Active Medications: Current Medications Generic Name Dose Route Start Last Admin Trade Name Diane PRN Reason Stop Dose Admin Levetiracetam 500 mg in 100 mls @ 400 mls/hr 06/26/21 17:53 Keppra IV 06/26/21 18:07 ONCE ONE Home Medications Medication Instructions Recorded Confirmed Last Taken Type atorvastatin 10 mg tablet 10 mg PO DAILY 03/18/21 06/26/21 Unknown History cholecalciferol (vitamin D3) 25 25 mcg PO DAILY 03/18/21 06/26/21 Unknown History mcg (1,000 unit) tablet cyanocobalamin (vitamin B-12) 500 500 mcg PO DAILY 03/18/21 06/26/21 Unknown History mcg tablet levetiracetam 500 mg tablet 500 mg PO BID 03/18/21 06/26/21 Unknown History lisinopril 2.5 mg tablet 5 mg PO DAILY 03/18/21 06/26/21 Unknown History omeprazole 20 mg capsule,delayed 20 mg PO DAILY 03/18/21 06/26/21 Unknown History release bisacodyl 10 mg rectal suppository 10 mg CA DAILY PRN 06/26/21 06/26/21 Unknown History Physical Exam Vital Signs and Narrative: Vital Signs: Last Vital Signs Temp 98.3 F 06/26/21 16:45 Pulse 63 06/26/21 16:45 Resp 14 06/26/21 16:45 BP 121/64 06/26/21 16:45 Pulse Ox 100 06/26/21 16:45 Body Mass Index 30.3 Const: Other: Constitutional : Alert, interactive, not in distress Neck : Normal inspection, Supple Cardiovascular : RRR, S1 S2, no lower extremity edema Respiratory : Good bilateral air entry, no crackles, wheezes or rhonchi Gastrointestinal: soft, lax, Normal bowel sounds, Non tender Skin : Warm, Dry Neurological : Alert & oriented to self, very difficult to assess orientation slurred speech and very difficult to understand, No focal deficit noticed on exam, cranial nerves within normal Results Labs CBC and Chem 7: 06/27/21 05:42 06/27/21 05:41 Labs: Laboratory Results - last 24 hr 06/26/21 06/26/21 06/26/21 16:28 16:36 16:40 MCV MCH MCHC RDW Plt Count MPV Immature Gran % (Auto) Neut % (Auto) Lymph % (Auto) [place] % (Auto) Eos % (Auto) Baso % (Auto) Lymph # (Auto) [place] # (Auto) Eos # (Auto) Baso # (Auto) Abs Immat Gran (auto) Absolute Neuts (auto) Absolute Nucleated RBC Nucleated RBC % (auto) PT Whole Blood PT 12.9 INR Whole Blood INR 1.1 APTT Anion Gap Estim Creat Clear Calc Estimated GFR POC Glucose 74 Random Glucose Calcium Total Bilirubin 0.4 Direct Bilirubin 0.2 AST 18 D ALT 16 Alkaline Phosphatase 76 Total Creatine Kinase Troponin I High Sens Total Protein 7.0 Albumin 4.2 Urine Color Urine Appearance Urine pH Ur Specific [place] Urine Protein Urine Glucose (UA) Urine Ketones Urine Blood Urine Nitrite Ur Leukocyte Esterase Ethyl Alcohol COVID-19 (ADRY) COVID-19 Clin Com 06/26/21 06/26/21 06/26/21 16:40 16:40 16:40 MCV 84.4 MCH 28.6 MCHC 33.8 RDW 13.4 Plt Count 165 MPV 9.6 Immature Gran % (Auto) 0.2 Neut % (Auto) 54.0 Lymph % (Auto) 30.7 [place] % (Auto) 11.6 H Eos % (Auto) 3.3 Baso % (Auto) 0.2 Lymph # (Auto) 1.4 [place] # (Auto) 0.5 Eos # (Auto) 0.2 Baso # (Auto) 0.0 Abs Immat Gran (auto) 0.01 Absolute Neuts (auto) 2.5 Absolute Nucleated RBC 0.000 Nucleated RBC % (auto) 0.0 PT 11.6 Whole Blood PT INR 1.0 Whole Blood INR APTT 34.5 Anion Gap 12 Estim Creat Clear Calc 63.3 Estimated GFR 58 POC Glucose Random Glucose 89 Calcium 9.5 Total Bilirubin Direct Bilirubin AST ALT Alkaline Phosphatase Total Creatine Kinase 92 Troponin I High Sens Total Protein Albumin Urine Color Urine Appearance Urine pH Ur Specific [place] Urine Protein Urine Glucose (UA) Urine Ketones Urine Blood Urine Nitrite Ur Leukocyte Esterase Ethyl Alcohol COVID-19 (ADRY) COVID-19 [employer] Com 06/26/21 06/26/21 06/26/21 16:40 16:41 17:17 MCV MCH MCHC RDW Plt Count MPV Immature Gran % (Auto) Neut % (Auto) Lymph % (Auto) [place] % (Auto) Eos % (Auto) Baso % (Auto) Lymph # (Auto) [place] # (Auto) Eos # (Auto) Baso # (Auto) Abs Immat Gran (auto) Absolute Neuts (auto) Absolute Nucleated RBC Nucleated RBC % (auto) PT Whole Blood PT INR Whole Blood INR APTT Anion Gap Estim Creat Clear Calc Estimated GFR POC Glucose Random Glucose Calcium Total Bilirubin Direct Bilirubin AST ALT Alkaline Phosphatase Total Creatine Kinase Troponin I High Sens 4.0 Total Protein Albumin Urine Color Urine Appearance Urine pH Ur Specific [place] Urine Protein Urine Glucose (UA) Urine Ketones Urine Blood Urine Nitrite Ur Leukocyte Esterase Ethyl Alcohol < 10 COVID-19 (ADRY) Negative COVID-19 [employer] Com See Note 06/26/21 17:19 MCV MCH MCHC RDW Plt Count MPV Immature Gran % (Auto) Neut % (Auto) Lymph % (Auto) [place] % (Auto) Eos % (Auto) Baso % (Auto) Lymph # (Auto) [place] # (Auto) Eos # (Auto) Baso # (Auto) Abs Immat Gran (auto) Absolute Neuts (auto) Absolute Nucleated RBC Nucleated RBC % (auto) PT Whole Blood PT INR Whole Blood INR APTT Anion Gap Estim Creat Clear Calc Estimated GFR POC Glucose Random Glucose Calcium Total Bilirubin Direct Bilirubin AST ALT Alkaline Phosphatase Total Creatine Kinase Troponin I High Sens Total Protein Albumin Urine Color YELLOW Urine Appearance CLEAR Urine pH 6.0 Ur Specific [place] <= 1.005 Urine Protein NEG Urine Glucose (UA) NEG Urine Ketones NEG Urine Blood NEG Urine Nitrite NEG Ur Leukocyte Esterase NEG Ethyl Alcohol COVID-19 (ADRY) COVID-19 Clin Com Imaging Radiologist's Impressions: Impressions Chest X-Ray 06/26/21 15:57 IMPRESSION: Unremarkable examination. No significant change since 10/23/2020. Head CT 06/26/21 15:58 IMPRESSION: No evidence of hemorrhage or acute major vascular territory infarction. No acute findings compared to the prior head CT from 03/18/2021. This critical result was discussed Dr. Fontanez at 4:17 pm on 06/26/2021. It was ascertained that the content and urgency of the report was understood at the time of direct communication. Head/Neck CTA 06/26/21 15:59 IMPRESSION: CT head and neck: 1. There are no acute bleeds or infarcts. There are no masses or areas of abnormal enhancement. 2. There is mild diffuse volume loss. 3. There is no cervical lymphadenopathy. There are emphysematous changes in the upper lung zarate. CTA head and neck: 1. The vertebral and carotid arteries in the neck, likely patent without flow-limiting stenosis. There is no significant atheromatous disease in the neck. 2. Intracranially there are no focal stenoses, aneurysms or vascular malformations. Minimal atheromatous changes are seen in the cavernous internal carotid arteries bilaterally. This critical result was discussed with Jonathon Fontanez MD by telephone on 06/26/2021 at 4:50 PM and it was ascertained that the content and urgency of the report was understood at the time of direct communication. Assessment and Plan (1) Abnormal gait: Status: Acute (2) Abnormal rate of speech: Status: Acute (3) Epilepsy: Status: Acute A 61 years old male with PMH of HTN, HLD, seizure disorder who presents to the hospital with abnormal gait and speech. Abnormal gait Seems to be ataxic in nature CTA, CT scan negative for any acute findings Could be secondary to stroke, seizures To get Neurology evaluation Hold on MRI for now until further evaluation Slurred speech Seems he has normal baseline speak and goes into these episodes every time and then Most likely this is related to seizure activity To give Ativan for now Seizure disorder To load with Keppra 500 IV continue home medication Seizure precautions DVT PPX Xarelto Quality Stroke Does the patient have a stroke diagnosis?: No VTE Prior VTE?: No VTE Risk Level:: Medical - moderate - high VTE Device Contraindication: Treatment Not Indicated VTE Drug Contraindication: N/A - Med Ordered
[2021-06-26 18:16] VITALS: BP 125/58; PULSE 67; RESP 14; O2SAT 98
[2021-06-26] MEDS: levETIRAcetam in NaCl (iso-os) 500 MG/100 ML PIGGYBACK 400 MG IV (18:18)
[2021-06-26] MEDS: LORazepam 2 MG/ML VIAL 1 MG IVPUSH (18:45)
[2021-06-26] MEDS: Valproic Acid (as Sodium Salt) 500 MG in Dextrose 5 % 50 ML 55 MG IV (18:45)
--- NOTE | 2021-06-26 19:23 | PC.NURSE ---
PT CONFUSED, STATES I'M WALKING DOWN THE ROAD. PT REPEATEDLY GETTING OUT OF BED. PT REPORTS THAT HE NEEDS TO GO TO THE BATHROOM. PT WILL NOT TAKE HIS JEANS OFF, CAN'T FIGURE OUT HOW TO USE URINAL. BOOTS REMOVED AND REMOVED FROM HIS ROOM. CALLED HOSPITALIST FOR MEDICATION. PT TRYING TO LEAVE ROOM WITH IV MEDICATION RUNNING.
[2021-06-26] MEDS: Haloperidol Lactate 5 MG/ML VIAL IVPUSH (19:35)
[2021-06-26] MEDS: levETIRAcetam 500 MG TABLET PO (19:35)
[2021-06-26 19:45] VITALS: BP 114/79; PULSE 67; RESP 16; O2SAT 97
[2021-06-26 20:02] VITALS: BP 102/69; PULSE 64; RESP 16; O2SAT 95
--- NOTE | 2021-06-26 20:02 | PC.NURSE ---
pt was able to void, still refusing to change into hosopital ants. pt medicated early with p.o. medications, before haldol administered. pt now sleeping soundly with good respiratory effort and rate.
--- NOTE | 2021-06-26 21:11 | PC.NURSE ---
CALLED FLOOR FOR REPORT, RN WILL CALL BACK.
--- NOTE | 2021-06-26 21:25 | PC.NURSE ---
REPORT GIVEN TO RN ON FLOOR, PT READY FOR TRANSPORT TO FLOOR. PT SLEEPING WITH GOOD RESPIRATORY RATE AND EFFORT.
[2021-06-26 21:42] VITALS: BP 108/62; PULSE 54; RESP 18; TEMP 36.6; O2SAT 100
[2021-06-26] MEDS: 0.9 % Sodium Chloride Flush 3 ML SYRINGE IVFLUSH (21:43)
[2021-06-26 21:59] VITALS: BMI 30.1
[2021-06-27] VITALS (9 sets, daily range): BP systolic 94–127; BP diastolic 51–75; PULSE 55–88; RESP 16–20; TEMP 36.2–36.8; O2SAT 95–100
[2021-06-27] MEDS: Omeprazole 20 MG CAPSULE.DR PO (06:30)
[2021-06-27 06:49] LABS: Hematocrit 39.5 % (42-52); Hemoglobin 13.4 g/dl (14.0-18.0); Mean Corpuscular HGB Conc 33.9 g/dl (31.0-36.0); Mean Corpuscular Hemoglobin 28.7 pg (27.0-33.0); Mean Corpuscular Volume 84.6 fL (80-98); Mean Platelet Volume 9.9 fL (9.4-12.4); Platelet Count 155 X10*3/uL (160-400); Red Blood Count 4.67 X10*6/uL (4.60-5.80); Red Cell Distribution Width 13.5 % (11.0-16.0); White Blood Count 4.2 X10*3/uL (4.8-10.8)
[2021-06-27 07:06] LABS: Anion Gap 11 (12-20); Blood Urea Nitrogen 16 mg/dL (9-16); Calcium 9.1 mg/dL (8.4-10.2); Carbon Dioxide 24 mmol/L (22-29); Chloride 109 mmol/L (96-108); Cholesterol 135 mg/dL; Creatinine Clr Calc Pharmacy 67.3; Estimated Glomerular Filt Rate > 60; Glucose Random 82 mg/dL (60-115); HDL Cholesterol 45 mg/dL; LDL Cholesterol Calculated 79 mg/dl; Potassium 4.3 mmol/L (3.3-5.1); Sodium 140 mmol/L (135-145); Triglycerides 59 mg/dL
[2021-06-27] MEDS: Rivaroxaban 10 MG TABLET PO (08:52)
[2021-06-27] MEDS: Cyanocobalamin (Vitamin B-12) 500 MCG TABLET PO (08:52)
[2021-06-27] MEDS: 0.9 % Sodium Chloride Flush 3 ML SYRINGE IVFLUSH ×3 (08:52→20:23)
[2021-06-27] MEDS: Cholecalciferol (Vitamin D3) 25 MCG TABLET PO (08:52)
[2021-06-27] MEDS: levETIRAcetam 500 MG TABLET PO (08:52)
[2021-06-27] MEDS: Atorvastatin Calcium 10 MG TABLET PO (08:52)
--- NOTE | 2021-06-27 10:25 | P.CNNE_ITS ---
History of Present Illness Data of Consult Service Date: 06/27/21 Primary Care Provider: Jannette West MD [facility] Reason for consult: Difficulty speaking 61 years old man who apparently carried a diagnosis of ?vascular dementia? resident of [facility] was brought to hospital with change in his mental status or speech pattern and unsteadiness. He was unable to provide any meaningful history. When I talked to him, he was alert and awake stating that his brother was responsible for this and he did not know what happened. He did not have recollection of what had happened. There was no witnessing of any obvious convulsion or seizure. Review of Systems Review of Systems: No recent cold or flu-like illness trauma or loss of consciousness chest pain shortness of breath headache nausea vomiting or any new eye symptoms. No history of recent exposure to any new medicine or drug abuse. [facility] Past Medical History Medical History (Updated 06/27/21 @ 10:30 by Tyrel Augustin MD) Epilepsy Vascular dementia Social History Social History Alcohol intake: former Patient Tobacco Use Status: Former Tobacco user Use of substances other than those prescribed or required for medical reasons: No Advance Directives: No Advance Directives Information Provided: No Meds Allergies Allergy/AdvReac Type Severity Reaction Status Date / Time Unable to Assess Allergy Verified 10/23/20 20:05 Active Medications: Current Medications Generic Name Dose Route Start Last Admin Trade Name Freq PRN Reason Stop Dose Admin Acetaminophen 650 mg 06/26/21 17:54 Acetaminophen 325 Mg Tablet PO Q6H PRN Pain, Mild (Pain Scale 1-3) Atorvastatin Calcium 10 mg 06/27/21 09:00 06/27/21 08:52 Atorvastatin Calcium 10 Mg Tablet PO 10 mg DAILY PAMELA Administration Bisacodyl 10 mg 06/26/21 18:21 Bisacodyl 10 Mg Supp.Rect NE DAILY PRN Constipation Cyanocobalamin 500 mcg 06/27/21 09:00 06/27/21 08:52 Cyanocobalamin (Vitamin B-12) 500 Mcg Tablet PO 500 mcg DAILY PAMELA Administration Levetiracetam 500 mg 06/26/21 21:00 06/27/21 08:52 Levetiracetam 500 Mg Tablet PO 500 mg BID PAMELA Administration Omeprazole 20 mg 06/27/21 06:30 06/27/21 06:30 Omeprazole 20 Mg Capsule. PO 20 mg DAILY@0630 PAMELA Administration Ondansetron HCl 4 mg 06/26/21 17:54 Ondansetron Hcl 4 Mg/2 Ml Vial IVPUSH Q8H PRN Nausea and Vomiting Rivaroxaban 10 mg 06/27/21 09:00 06/27/21 08:52 Rivaroxaban 10 Mg Tablet PO 10 mg DAILY PAMELA Administration Sodium Chloride 3 ml 06/27/21 00:00 06/27/21 08:52 0.9 % Sodium Chloride Flush 3 Ml Syringe IVFLUSH 3 ml QSHIFT PAMELA Administration Valproic Acid 250 mg 06/26/21 21:00 06/27/21 08:52 Valproic Acid (As Sodium Salt) 250 Mg/5 Ml Solution PO 250 mg TID PAMELA Administration Vitamin D 25 mcg 06/27/21 09:00 06/27/21 08:52 Cholecalciferol (Vitamin D3) 25 Mcg Tablet PO 25 mcg DAILY PAMELA Administration Home Medications Medication Instructions Recorded Confirmed Last Taken Type atorvastatin 10 mg tablet 10 mg PO DAILY 03/18/21 06/26/21 Unknown History cholecalciferol (vitamin D3) 25 25 mcg PO DAILY 03/18/21 06/26/21 Unknown History mcg (1,000 unit) tablet cyanocobalamin (vitamin B-12) 500 500 mcg PO DAILY 03/18/21 06/26/21 Unknown History mcg tablet levetiracetam 500 mg tablet 500 mg PO BID 03/18/21 06/26/21 Unknown History lisinopril 2.5 mg tablet 5 mg PO DAILY 03/18/21 06/26/21 Unknown History omeprazole 20 mg capsule,delayed 20 mg PO DAILY 03/18/21 06/26/21 Unknown History release bisacodyl 10 mg rectal suppository 10 mg NE DAILY PRN 06/26/21 06/26/21 Unknown History Physical Exam Vital Signs: Vital Signs: Last Vital Signs Temp 98.1 F 06/27/21 08:00 Pulse 88 06/27/21 08:44 Resp 20 06/27/21 08:00 BP 114/73 06/27/21 08:44 Pulse Ox 98 06/27/21 08:00 Body Mass Index 30.1 Neuro: Other: He is alert and awake with normal spontaneity of speech fluency comprehension and wake affect. He knew what this year was but could not tell me what month was stating that he did not pay attention to these things he had no recollection of what had recently happened. He was following simple commands. He was able to name and repeat. Pupils were about 3 mm round reactive to light. Extraocular muscles were intact. This seems to be right visual field defect. Examination was somewhat limited. There was no obvious focal arm or leg weakness. Plantars were withdrawing. Results Labs CBC & Chem 7: 06/27/21 05:42 06/27/21 05:41 Labs: Short CBC 06/26/21 06/27/21 Range/Units 16:40 05:42 WBC 4.6 L 4.2 L (4.8-10.8) X10*3/uL Hgb 13.4 L 13.4 L (14.0-18.0) g/dl Hct 39.6 L 39.5 L (42-52) % Plt Count 165 155 L (160-400) X10*3/uL BMP 06/26/21 06/27/21 16:40 05:41 Sodium 138 140 Potassium 4.6 4.3 Chloride 103 109 H Carbon Dioxide 28 24 BUN 18 H 16 Creatinine 1.27 1.19 Calcium 9.5 9.1 Cardiac Enzymes 06/26/21 Range/Units 16:40 Total Creatine Kinase 92 (38-174) U/L Liver Function 06/26/21 Range/Units 16:40 Total Bilirubin 0.4 (0.0-1.0) mg/dL Direct Bilirubin 0.2 (0.0-0.5) mg/dL AST 18 D (5-37) U/L ALT 16 (0-40) U/L Alkaline Phosphatase 76 (39-117) U/L Albumin 4.2 (3.5-5.0) g/dL Urine 06/26/21 Range/Units 17:19 Urine Color YELLOW Urine Appearance CLEAR Urine pH 6.0 (5.0-8.0) Ur Specific [place] <= 1.005 (1.005-1.025) Urine Protein NEG (NEG-TRACE) MG/DL Urine Glucose (UA) NEG (NEG) MG/DL His noncontrast head CT did not reveal any significant abnormality other than mild diffuse cerebral atrophy. Minimal microvascular disease was noted and there was no evidence of lesions that could qualify diagnosis of vascular dementia. CTA of brain and neck similarly did not reveal any acute or significant chronic pathology. No significant vascular lesion was noted. Assessment and Plan (1) Encephalopathy: Status: Acute 61 years old man with underlying diagnosis of ?vascular dementia? but brain imaging not revealing any such corresponding lesion. At this time his examination revealed confusion and amnesia. Etiology was unclear. Because of his relative young age, further investigations are recommended. In that regard I recommend followin. MRI of brain with and without contrast 2. Lyme serology, sed rate, RPR, and HIV test 3. Depending upon MRI findings, he might also need a lumbar puncture and 4. Electroencephalogram 5. For now treat him with thiamine folate and a dose of B complex vitamins Procedures Date of Service Date of Service: 06/27/21
--- NOTE | 2021-06-27 11:02 | MHC.CM.PN ---
Addendum entered by Rufina Alamo 06/27/21 11:17: CORRECTION: BROTHERS NAME IS POLLO MCFARLAND Original Note: CM CONTACTED PTS PRIMARY CONTACT, POLLO PARRISH ([phone]) PT APPEARS CONFUSED. POLLO REPORTS THE PT HAS BEEN AT [facility] HOWEVER THE PLAN IS NOT FOR HIM TO REMAIN THERE. POLLO REPORTS THEY WERE JUST TRYING TO FIGURE OUT WHAT IS WRONG WITH HIM . HE ALSO EXPLAINS THE PT DOES NOT HAVE A HOME OTHER THAN [facility] PRIOR TO HIS [place] ADMISSION, HE WAS HOMELESS. POLLO REPORTS HE AND HIS SIBLINGS ARE THE PTS HCP'S. COPY REQUESTED FROM [facility]. HE ALSO REPORTS THE PT DOES NOT USE DME AT [facility]. IMM DELIVERED TO POLLO VIA T/C AND A COPY WILL BE MAILED TO HIM. CURRENT DC PLAN IS RETURN TO [facility] VIA BLS
--- NOTE | 2021-06-27 11:41 | HO.PM.IMPN ---
Subjective Subjective Date of Service: 06/27/21 Interval History: the patient was seen and evaluated this morning Laying in bed, feels comfortable overall, confused about the reason of being in the hospital a not aware how did he ended up Denies any fever, chills or shortness of breath No reported other overnight events. Systemic review: No fever, chills or weakness No chest pain, palpitation No shortness of breath or coughing No abdominal pain, nausea or vomiting No urinary symptoms No any rash or wounds Physical Exam Vital Signs: Vital Signs: Last Vital Signs Temp 98.1 F 06/27/21 08:00 Pulse 88 06/27/21 08:44 Resp 20 06/27/21 08:00 BP 114/73 06/27/21 08:44 Pulse Ox 98 06/27/21 08:00 Body Mass Index 30.1 Const: Other: Constitutional : Alert, interactive, not in distress Neck : Normal inspection, Supple Cardiovascular : RRR, S1 S2, no lower extremity edema Respiratory : Good bilateral air entry, no crackles, wheezes or rhonchi Gastrointestinal: soft, lax, Normal bowel sounds, Non tender Skin : Warm, Dry Neurological : Alert & disoriented to time and place No focal deficit noticed on exam, cranial nerves within normal Objective Data Active Medications Acetaminophen (Acetaminophen 325 Mg Tablet) 650 mg PO Q6H PRN PRN Reason: Pain, Mild (Pain Scale 1-3) Atorvastatin Calcium (Atorvastatin Calcium 10 Mg Tablet) 10 mg PO DAILY [facility] Last Admin: 06/27/21 08:52 Dose: 10 mg Documented by: SMILEY Bisacodyl (Bisacodyl 10 Mg Supp.Rect) 10 mg MT DAILY PRN PRN Reason: Constipation Cyanocobalamin (Cyanocobalamin (Vitamin B-12) 500 Mcg Tablet) 500 mcg PO DAILY [facility] Last Admin: 06/27/21 08:52 Dose: 500 mcg Documented by: SMILEY Folic Acid (Folic Acid 1 Mg Tablet) 1 mg PO DAILY [facility] Levetiracetam (Levetiracetam 500 Mg Tablet) 500 mg PO BID [facility] Last Admin: 06/27/21 08:52 Dose: 500 mg Documented by: SMILEY Multivitamins (B-Complex With Vitamin C Tablet) 1 tab PO DAILY [facility] Omeprazole (Omeprazole 20 Mg Capsule.) 20 mg PO DAILY@0630 [facility] Last Admin: 06/27/21 06:30 Dose: 20 mg Documented by: ULI Ondansetron HCl (Ondansetron Hcl 4 Mg/2 Ml Vial) 4 mg IVPUSH Q8H PRN PRN Reason: Nausea and Vomiting Rivaroxaban (Rivaroxaban 10 Mg Tablet) 10 mg PO DAILY [facility] Last Admin: 06/27/21 08:52 Dose: 10 mg Documented by: SMILEY Sodium Chloride (0.9 % Sodium Chloride Flush 3 Ml Syringe) 3 ml IVFLUSH QSHIFT [facility] Last Admin: 06/27/21 08:52 Dose: 3 ml Documented by: SMILEY Thiamine HCl (Thiamine Hcl 100 Mg Tablet) 100 mg PO DAILY [facility] Valproic Acid (Valproic Acid (As Sodium Salt) 250 Mg/5 Ml Solution) 250 mg PO TID [facility] Last Admin: 06/27/21 08:52 Dose: 250 mg Documented by: SMILEY Vitamin D (Cholecalciferol (Vitamin D3) 25 Mcg Tablet) 25 mcg PO DAILY [facility] Last Admin: 06/27/21 08:52 Dose: 25 mcg Documented by: SMILEY Labs CBC & Chem 7: 06/27/21 05:42 06/27/21 05:41 Labs: Laboratory Results - last 24 hr 06/26/21 06/26/21 06/26/21 16:28 16:36 16:40 MCV MCH MCHC RDW Plt Count MPV Immature Gran % (Auto) Neut % (Auto) Lymph % (Auto) [place] % (Auto) Eos % (Auto) Baso % (Auto) Lymph # (Auto) [place] # (Auto) Eos # (Auto) Baso # (Auto) Abs Immat Gran (auto) Absolute Neuts (auto) Absolute Nucleated RBC Nucleated RBC % (auto) PT Whole Blood PT 12.9 INR Whole Blood INR 1.1 APTT Anion Gap Estim Creat Clear Calc Estimated GFR POC Glucose 74 Random Glucose Calcium Total Bilirubin 0.4 Direct Bilirubin 0.2 AST 18 D ALT 16 Alkaline Phosphatase 76 Total Creatine Kinase Troponin I High Sens Total Protein 7.0 Albumin 4.2 Triglycerides Cholesterol LDL Cholesterol, Calc HDL Cholesterol Urine Color Urine Appearance Urine pH Ur Specific [place] Urine Protein Urine Glucose (UA) Urine Ketones Urine Blood Urine Nitrite Ur Leukocyte Esterase Ethyl Alcohol COVID-19 (ADRY) COVID-19 Clin Com 06/26/21 06/26/21 06/26/21 16:40 16:40 16:40 MCV 84.4 MCH 28.6 MCHC 33.8 RDW 13.4 Plt Count 165 MPV 9.6 Immature Gran % (Auto) 0.2 Neut % (Auto) 54.0 Lymph % (Auto) 30.7 [place] % (Auto) 11.6 H Eos % (Auto) 3.3 Baso % (Auto) 0.2 Lymph # (Auto) 1.4 [place] # (Auto) 0.5 Eos # (Auto) 0.2 Baso # (Auto) 0.0 Abs Immat Gran (auto) 0.01 Absolute Neuts (auto) 2.5 Absolute Nucleated RBC 0.000 Nucleated RBC % (auto) 0.0 PT 11.6 Whole Blood PT INR 1.0 Whole Blood INR APTT 34.5 Anion Gap 12 Estim Creat Clear Calc 63.3 Estimated GFR 58 POC Glucose Random Glucose 89 Calcium 9.5 Total Bilirubin Direct Bilirubin AST ALT Alkaline Phosphatase Total Creatine Kinase 92 Troponin I High Sens Total Protein Albumin Triglycerides Cholesterol LDL Cholesterol, Calc HDL Cholesterol Urine Color Urine Appearance Urine pH Ur Specific [place] Urine Protein Urine Glucose (UA) Urine Ketones Urine Blood Urine Nitrite Ur Leukocyte Esterase Ethyl Alcohol COVID-19 (ADRY) COVID-19 Clin Com 06/26/21 06/26/21 06/26/21 16:40 16:41 17:17 MCV MCH MCHC RDW Plt Count MPV Immature Gran % (Auto) Neut % (Auto) Lymph % (Auto) [place] % (Auto) Eos % (Auto) Baso % (Auto) Lymph # (Auto) [place] # (Auto) Eos # (Auto) Baso # (Auto) Abs Immat Gran (auto) Absolute Neuts (auto) Absolute Nucleated RBC Nucleated RBC % (auto) PT Whole Blood PT INR Whole Blood INR APTT Anion Gap Estim Creat Clear Calc Estimated GFR POC Glucose Random Glucose Calcium Total Bilirubin Direct Bilirubin AST ALT Alkaline Phosphatase Total Creatine Kinase Troponin I High Sens 4.0 Total Protein Albumin Triglycerides Cholesterol LDL Cholesterol, Calc HDL Cholesterol Urine Color Urine Appearance Urine pH Ur Specific [place] Urine Protein Urine Glucose (UA) Urine Ketones Urine Blood Urine Nitrite Ur Leukocyte Esterase Ethyl Alcohol < 10 COVID-19 (ADRY) Negative COVID-19 Clin Com See Note 06/26/21 06/27/21 06/27/21 17:19 05:41 05:42 MCV 84.6 MCH 28.7 MCHC 33.9 RDW 13.5 Plt Count 155 L MPV 9.9 Immature Gran % (Auto) Neut % (Auto) Lymph % (Auto) [place] % (Auto) Eos % (Auto) Baso % (Auto) Lymph # (Auto) [place] # (Auto) Eos # (Auto) Baso # (Auto) Abs Immat Gran (auto) Absolute Neuts (auto) Absolute Nucleated RBC 0.000 Nucleated RBC % (auto) 0.0 PT Whole Blood PT INR Whole Blood INR APTT Anion Gap 11 L Estim Creat Clear Calc 67.3 Estimated GFR > 60 POC Glucose Random Glucose 82 Calcium 9.1 Total Bilirubin Direct Bilirubin AST ALT Alkaline Phosphatase Total Creatine Kinase Troponin I High Sens Total Protein Albumin Triglycerides 59 Cholesterol 135 LDL Cholesterol, Calc 79 HDL Cholesterol 45 Urine Color YELLOW Urine Appearance CLEAR Urine pH 6.0 Ur Specific [place] <= 1.005 Urine Protein NEG Urine Glucose (UA) NEG Urine Ketones NEG Urine Blood NEG Urine Nitrite NEG Ur Leukocyte Esterase NEG Ethyl Alcohol COVID-19 (ADRY) COVID-19 Clin Com Assessment and Plan (1) Confusion and disorientation: Status: Acute (2) Epilepsy: Status: Acute (3) Abnormal gait: Status: Acute (4) Abnormal rate of speech: Status: Acute Assessment and Plan: A 61 years old male with PMH of HTN, HLD, seizure disorder who presents to the hospital with abnormal gait and speech. Confusion, disorientation CTA, CT scan negative for any acute findings Could be secondary to stroke, seizures Neurology input appreciated, check MRI, do serologies To do MRI with and without contrast To check RPR, HIV, Lyme Slurred speech, abnormal gait Seems he has normal baseline speak and goes into these episodes every time and then Most likely this is related to seizure activity To give Ativan for now Seizure disorder Continue p.o. Keppra Start p.o. valproic acid Seizure precautions DVT PPX Xarelto Quality Stroke Does the patient have a stroke diagnosis?: No VTE Prior VTE?: No VTE Risk Level:: Medical - moderate - high VTE Device Contraindication: Treatment Not Indicated VTE Drug Contraindication: N/A - Med Ordered
[2021-06-27] MEDS: Folic Acid 1 MG TABLET PO (12:28)
[2021-06-27] MEDS: Thiamine HCL 100 MG TABLET PO (12:28)
[2021-06-27 13:48] LABS: Erythrocyte Sedimentation Rate 5 MM/HR (0-15)
--- NOTE | 2021-06-27 20:33 | MHC.PIE ---
p; pt refusing po meds, pt refusing to speak or open eyes at this time. i; pt redirected numerous times with pt cont to refuse meds e; will cont to monitor
[2021-06-28 03:46] VITALS: BP 121/51; PULSE 57; RESP 16; TEMP 36.8; O2SAT 96
[2021-06-28] MEDS: Omeprazole 20 MG CAPSULE.DR PO (06:14)
[2021-06-28 07:19] VITALS: BP 105/70; PULSE 60; RESP 18; TEMP 36.9; O2SAT 98
[2021-06-28 08:19] LABS: HIV AB/AG Nonreactive (Nonreactive); HIV Num 1 0.06 S/CO (0.00-0.99)
[2021-06-28 08:41] LABS: Syphilis Screen Nonreactive (Nonreactive)
[2021-06-28] MEDS: Folic Acid 1 MG TABLET PO (09:02)
[2021-06-28] MEDS: 0.9 % Sodium Chloride Flush 3 ML SYRINGE IVFLUSH ×2 (09:02→15:13)
[2021-06-28] MEDS: Rivaroxaban 10 MG TABLET PO (09:03)
[2021-06-28] MEDS: Cholecalciferol (Vitamin D3) 25 MCG TABLET PO (09:03)
[2021-06-28] MEDS: Thiamine HCL 100 MG TABLET PO (09:03)
[2021-06-28] MEDS: Cyanocobalamin (Vitamin B-12) 500 MCG TABLET PO (09:03)
[2021-06-28] MEDS: Atorvastatin Calcium 10 MG TABLET PO (09:03)
[2021-06-28] MEDS: levETIRAcetam 500 MG TABLET PO (09:03)
[2021-06-28 09:06] VITALS: BP 105/70; PULSE 60; O2SAT 98
[2021-06-28 12:00] VITALS: BP 117/79; PULSE 68; RESP 18; TEMP 37.1; O2SAT 98
--- NOTE | 2021-06-28 15:04 | PM.DS ---
DS: Providers Provider Date of Service: 06/28/21 Date of admission: 06/26/21 17:54 Primary care physician: Jannette West MD Consults: 06/26/21 17:54 Consult to Neurology Routine Consulting Provider: [facility] Reason for consultation: Abnormal gait, abnormal speech DS: Diagnosis Discharge Diagnosis (1) Confusion and disorientation: Status: Acute (2) Epilepsy: Status: Acute (3) Abnormal gait: Status: Acute (4) Abnormal rate of speech: Status: Acute DS: Summary Hospital Course Hospital Course: Admission note HPI A 61 years old male with PMH of HTN, HLD, seizure disorder who presents to the hospital with abnormal gait and speech. The patient resides SNF.? He was seen a clear in the morning walking fine but was found later during the day very unsteady and off balance with his speech seems to be different from baseline and worse.? Concerned about a stroke in the facility so EMS was called and they brought the patient back to the hospital.? Unclear timing as the patient has underlying dementia a so we could not know exactly wanted his symptoms started. He is very difficult to understand given the way he speak.? He denies any weakness any part of his body, headache, fever, chills, falls or syncope. A CT scan and CTA of head and neck were negative for any acute findings. Hospital course The the patient was admitted for evaluation of abnormal speech Ng gait associated with confusion. CT scan in CTA of the neck were negative for any acute findings. The patient was treated as seizure breakthrough after With IV Keppra with good response as his speech, gait and confusion improved significantly. MRI was done showing chronic changes and microangiopathy with old stroke in the occipital area. Evaluated by neurology team who recommended starting baby aspirin, continue Keppra and and valproic acid with follow-up as outpatient for further evaluation for a possible Alzheimer disease. Blood pressure was noticed to be running low so lisinopril was held. He had negative orthostatic readings. To hold lisinopril at time of discharge Stop lisinopril and monitor your blood pressure Start valproic acid for better control of seizures Start aspirin daily to prevent strokes Take folic acid and thiamine for 1 month EEG to be done outpatient To follow-up with Dr. Augustni in neurology clinic in 1 month. Call for follow-up. Time Spent with Patient Time attestation: Total time spent providing and/or coordinating discharge services: Discharge coordination time: Greater than 30 minutes Quality: Stroke Does the patient have a stroke diagnosis?: No Physical Exam Vital Signs: Vital Signs: Last Vital Signs Temp 98.7 F 06/28/21 12:00 Pulse 68 06/28/21 12:00 Resp 18 06/28/21 12:00 BP 117/79 06/28/21 12:00 Pulse Ox 98 06/28/21 12:00 Body Mass Index 30.1 Const: Other: Constitutional : Alert, interactive, not in distress Neck : Normal inspection, Supple Cardiovascular : RRR, S1 S2, no lower extremity edema Respiratory : Good bilateral air entry, no crackles, wheezes or rhonchi Gastrointestinal: soft, lax, Normal bowel sounds, Non tender Skin : Warm, Dry Neurological : Alert & disoriented to time and place but aware of himself, speech back to normal baseline, No focal deficit noticed on exam, cranial nerves within normal DS: Data Data Completed and Pending Labs on day of discharge: Laboratory Results - last 24 hr 06/27/21 06/27/21 12:20 12:20 T.pallidum Ab (EIA) Nonreactive HIV 1&2 Ab/P24 Ag 4thGn Nonreactive Imaging MRI - head: Radiologist's impression: ITS Impressions Chest X-Ray 06/26/21 15:57 IMPRESSION: Unremarkable examination. No significant change since 10/23/2020. Head CT 06/26/21 15:58 IMPRESSION: No evidence of hemorrhage or acute major vascular territory infarction. No acute findings compared to the prior head CT from 03/18/2021. This critical result was discussed Dr. Fontanez at 4:17 pm on 06/26/2021. It was ascertained that the content and urgency of the report was understood at the time of direct communication. Head/Neck CTA 06/26/21 15:59 IMPRESSION: CT head and neck: 1. There are no acute bleeds or infarcts. There are no masses or areas of abnormal enhancement. 2. There is mild diffuse volume loss. 3. There is no cervical lymphadenopathy. There are emphysematous changes in the upper lung zarate. CTA head and neck: 1. The vertebral and carotid arteries in the neck, likely patent without flow-limiting stenosis. There is no significant atheromatous disease in the neck. 2. Intracranially there are no focal stenoses, aneurysms or vascular malformations. Minimal atheromatous changes are seen in the cavernous internal carotid arteries bilaterally. This critical result was discussed with Jonathon Fontanez MD by telephone on 06/26/2021 at 4:50 PM and it was ascertained that the content and urgency of the report was understood at the time of direct communication. Brain MRI 06/28/21 11:34 IMPRESSION: - No acute intracranial findings. No enhancing lesions. No acute infarcts. 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 Discharge Plan Discharge Patient Disposition: [facility] Referrals: Jannette West MD [Primary Care Provider] - 1 Week Discharge Medications: New folic acid 1 mg Tablet 1 mg PO DAILY 30 Days Qty: 30 RF: 0 thiamine mononitrate (vit B1) 100 mg Tablet 100 mg PO DAILY Qty: 30 RF: 0 valproic acid (as sodium salt) 250 mg/5 mL (5 mL) Solution 250 mg PO TID 30 Days Qty: 450 RF: 0 aspirin 81 mg tablet,delayed release (DR/EC) 81 mg PO DAILY Qty: 30 RF: 0 Continued atorvastatin 10 mg tablet 10 mg PO DAILY RF: 0 levetiracetam 500 mg tablet 500 mg PO BID RF: 0 cyanocobalamin (vitamin B-12) 500 mcg Tablet 500 mcg PO DAILY RF: 0 omeprazole 20 mg Capsule,Delayed Release(Dr/Ec) 20 mg PO DAILY RF: 0 cholecalciferol (vitamin D3) 25 mcg (1,000 unit) Tablet 25 mcg PO DAILY RF: 0 bisacodyl 10 mg Suppository 10 mg [place] DAILY PRN (Reason: Constipation) RF: 0 Discontinued lisinopril 2.5 mg Tablet 5 mg PO DAILY RF: 0 Discharge Orders: Discharge Order (Routine); Ordered 06/28/21 Ordered By: David Camilo Diet: advance to usual diet Activity on Discharge: As tolerated Other Ambulatory Orders: EEG ambulatory (Routine) Timeframe: 1 Week Facility: [facility] - Location: Radiology Ordered By: David Camilo Care Plan Goals: Read below Health Concerns: Read below Plan of Treatment: You were admitted to the hospital for evaluation of confusion and slurred speech. Images were negative for any acute findings. You were treated as seizure breakthrough with seizure medications with good response as your symptoms improved and you were able to participate with physical therapy without dizziness. Assessment: Continue your home medications S stop lisinopril and monitor your blood pressure Start valproic acid for better control of seizures Start aspirin daily to prevent strokes Take folic acid and thiamine for 1 month EEG to be done outpatient To follow-up with Dr. Augustin in neurology clinic in 1 month. Call for follow-up.
[2021-06-28 15:11] LABS: Lyme Abs Screen <0.90 index
--- NOTE | 2021-06-28 15:15 | MHC.CM.PN ---
PT DISCHARGING BACK TO [facility] W/OUPT FOLLOW-UP W/NEUROLOGY IN ONE MONTH, [facility] FOR BLS TRANSPORT
[2021-06-28 15:37] VITALS: BP 118/78; PULSE 69; RESP 17; TEMP 36.3; O2SAT 99
== END 2021-06-28 17:50 | disposition skilled nursing facility (03) ==
LOC: HO.ED 17:37 → HO.EDOVER 18:12 → HO.S3 19:34
PROVIDERS: Admitting Provider Student in an Organized Health Care Education/Training Program; Emergency Provider Emergency Medicine Emergency Medical Services; PCP Internal Medicine; Visit Provider Student in an Organized Health Care Education/Training Program
DX: R26.9 Unspecified abnormalities of gait and mobility (principal); R47.89 Other speech disturbances; G40.909 Epilepsy, unspecified, not intractable, without status epilepticus; F01.50 Vascular dementia, unspecified severity, without behavioral disturbance, psychotic disturbance, mood disturbance, and anxiety; G93.40 Encephalopathy, unspecified; R41.0 Disorientation, unspecified; Z87.891 Personal history of nicotine dependence; Z79.899 Other long term (current) drug therapy; Z20.822 Contact with and (suspected) exposure to COVID-19
CPT/HCPCS: 36415; 70450; 70496; 70498; 70553; 71045; 80048; 80061; 80076; 81003; 82077; 82550; 82947; 84484; 85025; 85027; 85610; 85652; 85730; 86617; 86618; 86780; 87389; 87635; 93005; 96365; 96375; 97161; 99218; 99285; A9585; J1953; J2060; Q9967

== ENCOUNTER 2021-07-10 21:30 | Emergency (ER) | payer MEDICARE, MEDICAID, SELFPAY ==
--- NOTE | ~2021-07-10 | CT_ITS ---
EXAMINATION: CT HEAD WITHOUT CONTRAST (STROKE PROTOCOL) CLINICAL INFORMATION: Stroke protocol. Confusion. Dysarthria. COMPARISON: CT imaging exams from 06/26/2021. Brain MRI from 06/28/2021. TECHNIQUE: Contiguous axial imaging was performed from the skull base to vertex without intravenous administration of contrast. This CT examination was performed using dose optimization techniques as appropriate, variously including the following: *Automated exposure control *Adjustment of mA and/or kV according to patient size (this includes techniques or standardized protocols for targeted exams where dose is matched to indication/reason for exam; i.e. extremities or head) *Use of iterative reconstruction technique DLP: 735 mGy-cm FINDINGS: FINDINGS: The ritter-white matter differentiation is well preserved. No evidence of an acute major vascular territory infarction. No dense cerebral artery sign. No intracranial hemorrhage, extra-axial fluid collection, focal mass effect or midline shift. The chronic cerebral volume loss is associated with commensurate prominence of ventricles and sulci; no hydrocephalus. The brainstem and cerebellum have a normal appearance. The cerebellar tonsils are in normal position. The calvarium is intact. The visualized paranasal sinuses, mastoid air cells and middle ear cavities are well aerated. Prior ocular lens replacements. The temporomandibular joints are unremarkable. CT/CT head for stroke IMPRESSION: * No evidence of hemorrhage or acute major vascular territory infarction. * No acute findings compared to the prior head CT from 06/26/2021. This critical result was discussed with Dr. Fontanez at 9:50 pm on 07/10/2021. It was ascertained that the content of the report was understood at the time of direct communication.
[2021-07-10 21:34] VITALS: BP 120/76; PULSE 63; RESP 18; O2SAT 100; BMI 27.3
--- NOTE | 2021-07-10 21:36 | ECG_ITS ---
Test Reason : R/O CVA Blood Pressure : / mmHG Vent. Rate : 063 BPM Atrial Rate : 063 BPM P-R Int : 142 ms QRS Dur : 086 ms QT Int : 408 ms P-R-T Axes : 044 -11 034 degrees QTc Int : 417 ms Normal sinus rhythm Normal ECG When compared with ECG of 26-JUN-2021 16:59, No significant change was found Referred By: Jonathon Fontanez Electronically Signed By:CHANDRIKA BROWN
[2021-07-10 21:44] VITALS: BMI 29.2
--- NOTE | 2021-07-10 21:49 | ED_ITS ---
HPI - Neuro Symptoms/Deficit General Chief Complaint: Neuro Symptoms/Deficit Stated Complaint: stroke/alert Time Seen by Provider: 07/10/21 21:36 Source: patient and EMS Mode of arrival: EMS Limitations: no limitations History of Present Illness HPI Narrative: 61 year-old man sent to the emergency department by ambulance for evaluation of difficulty speaking and unsteady gait. The patient lives in a [facility] and his last well-known well time was unknown. Patient does have a history of seizure disorder and there was a concern that maybe had a seizure and is postictal. According to the paramedics, the patient's family member called him at around 7:00 p.m. and the patient's speech was slurred which apparently is unusual for him. Nursing staff then noted that his gait was off as well. The patient had a similar presentation on 06/26/2021 and was seen by me at that time. Patient had a very similar presentation and his emergency department workup was negative. 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 The diagnosis that time was change in mental status and gait secondary to breakthrough seizures. Patient was treated with Keppra and valproic acid and was discharged on these 2 medications. On presentation to the emergency department I evaluated the patient on the EMS stretcher. The patient was oriented to person and place and he was able to identify objects, his speech is dysarthric but comprehensible, his neurologic exam was nonfocal. Patient was made a stroke protocol patient in transferred from the EMS stretcher to the CT scanner for CT scan of the head without contrast to RO rule out bleed or acute stroke. Related Data Home Medications Medication Instructions Recorded Confirmed atorvastatin 10 mg tablet 10 mg PO DAILY 03/18/21 06/26/21 cholecalciferol (vitamin D3) 25 25 mcg PO DAILY 03/18/21 06/26/21 mcg (1,000 unit) tablet cyanocobalamin (vitamin B-12) 500 500 mcg PO DAILY 03/18/21 06/26/21 mcg tablet levetiracetam 500 mg tablet 500 mg PO BID 03/18/21 06/26/21 omeprazole 20 mg capsule,delayed 20 mg PO DAILY 03/18/21 06/26/21 release bisacodyl 10 mg rectal suppository 10 mg TX DAILY PRN 06/26/21 06/26/21 Previous Rx's Medication Instructions Recorded aspirin 81 mg tablet,delayed 81 mg PO DAILY #30 tab 06/28/21 release folic acid 1 mg tablet 1 mg PO DAILY 30 Days #30 tab 06/28/21 thiamine mononitrate (vit B1) 100 100 mg PO DAILY #30 tab 06/28/21 mg tablet valproic acid (as sodium salt) 250 250 mg PO TID 30 Days #450 ml 06/28/21 mg/5 mL (5 mL) oral solution Allergies Allergy/AdvReac Type Severity Reaction Status Date / Time Unable to Assess Allergy Verified 10/23/20 20:05 Review of Systems Review of Systems: Yes all other systems are reviewed and are negative Neurologic: Reports Abnormal speech present (Mildly dysarthric speech which is comprehensible) [facility] Past Medical History [facility] Narrative: Social history: Patient lives at [facility]. Does not smoke cigarettes, he does not drink alcohol he does not use drugs. Medical History Ataxia Epilepsy Vascular dementia Social History Social History Alcohol intake: never Patient Tobacco Use Status: Former Tobacco user Smoked in Last 30 Days: No Use of substances other than those prescribed or required for medical reasons: No Advance Directives: No Advance Directives Information Provided: Yes service: No Current occupational status: unemployed and disabled Physical Exam Vital Signs: Vital Signs: Last Vital Signs Temp 98.6 F 07/10/21 21:50 Pulse 61 07/10/21 21:50 Resp 18 07/10/21 21:50 BP 123/86 07/10/21 21:50 Pulse Ox 100 07/10/21 21:50 Body Mass Index 29.2 Const: Other: Awake alert male patient, patient is oriented to person and place, his speech is dysarthric but he is able to answer questions appropriately with comprehensible words, he is able to identify objects without difficulty, he is pleasant and cooperative and does not appear to be in distress Orientation/consciousness: oriented to person and oriented to place HENMT: Head: Yes normal to inspection, Yes normocephalic and Yes atraumatic Ears: external ears normal General nose exam: Normal external nose present Face and sinus: Yes normal facial exam Mouth: Normal oral and palatal mucosa present Throat: Yes posterior oropharynx normal Eyes: General: appearance normal, both eyes and all related structures Pupils: Equal, round and reactive pupils present Neck: Neck: Yes normal visual inspection, Yes no lymphadenopathy, Yes trachea midline and Yes supple Chest: Chest palpation & inspection: normal inspection of the chest and normal palpation of entire chest wall Resp: Effort & Inspection: normal respiratory effort and able to speak in complete sentences Auscultation: clear to auscultation bilaterally Cardio: Rate: regular rate Rhythm: regular rhythm Heart sounds: S1 normal heart sound present, S2 normal heart sound present and no murmurs GI: Inspection: Yes normal to inspection Palpation (GI): Soft to palpation, nontender and no guarding Auscultation: normal bowel sounds : General: Yes no CVA tenderness Back/Spine/Pelvis: Back: no CVA tenderness Skin: General skin exam: no rashes or lesions noted Neuro: General: oriented to person and oriented to place Cranial nerves: Yes CN's II-XII intact bilaterally and Yes Equal, round and reactive pupils present Cognition (Neuro): normal cognition Speech: Abnormal speech present (Mildly dysarthric speech which is comprehensible) Motor exam (neuro): 5/5 motor strength present throughout Extrem: General: Yes normal to inspection Psych: Appearance: grossly normal Speech and movement: Normal speech and movement present Affect: normal affect Attitude: cooperative Thought process: Normal thought process present Thought content: Normal thought content present Course Course Course Narrative: 61-year-old male brought to the emergency department for evaluation of change in speech pattern, altered mental status and abnormal gait. The patient does have a history of previous stroke, seizures and vascular dementia. The patient had a similar presentation on 06/26/2021, was admitted and his symptoms were felt to be caused by breakthrough seizures. The patient's last well known time is unknown, family member did speak to the patient at 7:00 p.m. and felt that his speech was garbled. On presentation to the emergency department, patient's speech is dysarthric but comprehensible, is exam is nonfocal. Patient had a CT scan of the head without contrast which was interpreted by the radiologist as no acute findings and unchanged compared to 06/26/2021. 2302: The patient's NIH stroke scale was 1. I suspect that the patient had a stroke and not a seizure as the cause of his symptoms, therefore the patient is not a thrombolytic candidate. The patient's laboratory evaluation was unremarkable. I did add a valproic acid level and Keppra level to the patient's blood work. The patient's COVID-19 test was negative. The patient remains awake and alert and is able to answer all questions appropriately. Given his negative recent workup with an MRI that showed no acute stroke. The patient told me that his neurologist is Dr. Harding . The patient will need to follow- up with his neurologist to determine further management of his antiseizure medications MDM - Neuro Symptoms/Deficit Lab Data Result diagrams: 07/10/21 22:07/10/21 22: Labs: Lab Results 07/10/21 07/10/21 07/10/21 Range/Units 22:01 22:01 22:01 WBC 6.1 (4.8-10.8) X10*3/uL RBC 4.43 L (4.60-5.80) X10*6/uL Hgb 12.9 L (14.0-18.0) g/dl Hct 38.2 L (42-52) % MCV 86.2 (80-98) fL MCH 29.1 (27.0-33.0) pg MCHC 33.8 (31.0-36.0) g/dl RDW 13.7 (11.0-16.0) % Plt Count 156 L (160-400) X10*3/uL MPV 9.6 (9.4-12.4) fL Immature Gran % (Auto) 0.2 (0.0-0.4) % Neut % (Auto) 46.0 (45-73) % Lymph % (Auto) 37.6 (20-40) % [place] % (Auto) 11.3 H (2-11) % Eos % (Auto) 4.6 H (0-4) % Baso % (Auto) 0.3 (0-2) % Lymph # (Auto) 2.3 (1.2-4.9) X10*3/uL [place] # (Auto) 0.7 (0.1-1.2) X10*3/uL Eos # (Auto) 0.3 (0.0-0.4) X10*3/uL Baso # (Auto) 0.0 (0.0-0.2) X10*3/uL Abs Immat Gran (auto) 0.01 (0.00-0.03) X10*3/uL Absolute Neuts (auto) 2.8 (2.0-8.3) X10*3/uL Absolute Nucleated RBC 0.000 (0.0-0.012) X10*3/uL Nucleated RBC % (auto) 0.0 (0.0-0.2) /100WBC PT 11.0 (9.9-13.0) SEC INR 1.0 (0.9-1.1) APTT 31.4 (24.1-38.0) SEC Sodium 141 (135-145) mmol/L Potassium 4.1 (3.3-5.1) mmol/L Chloride 105 (96-108) mmol/L Carbon Dioxide 28 (22-29) mmol/L Anion Gap 12 (12-20) BUN 13 (9-16) mg/dL Creatinine 1.40 (0.5-1.4) mg/dL Estim Creat Clear Calc 60.2 Estimated GFR 52 Random Glucose 86 (60-115) mg/dL Calcium 9.2 (8.4-10.2) mg/dL Phosphorus 3.6 (2.7-4.5) mg/dL Magnesium 2.1 (1.6-2.6) mg/dL Total Bilirubin 0.4 (0.0-1.0) mg/dL Direct Bilirubin 0.2 (0.0-0.5) mg/dL AST 16 (5-37) U/L ALT 14 (0-40) U/L Alkaline Phosphatase 81 (39-117) U/L Total Creatine Kinase 115 (38-174) U/L Troponin I High Sens (<3.5-35.0) ng/L Total Protein 6.9 (6.5-8.0) g/dL Albumin 4.2 (3.5-5.0) g/dL COVID-19 (ADRY) (Negative) COVID-19 Clin Com 07/10/21 07/10/21 Range/Units 22:01 22:01 WBC (4.8-10.8) X10*3/uL RBC (4.60-5.80) X10*6/uL Hgb (14.0-18.0) g/dl Hct (42-52) % MCV (80-98) fL MCH (27.0-33.0) pg MCHC (31.0-36.0) g/dl RDW (11.0-16.0) % Plt Count (160-400) X10*3/uL MPV (9.4-12.4) fL Immature Gran % (Auto) (0.0-0.4) % Neut % (Auto) (45-73) % Lymph % (Auto) (20-40) % [place] % (Auto) (2-11) % Eos % (Auto) (0-4) % Baso % (Auto) (0-2) % Lymph # (Auto) (1.2-4.9) X10*3/uL [place] # (Auto) (0.1-1.2) X10*3/uL Eos # (Auto) (0.0-0.4) X10*3/uL Baso # (Auto) (0.0-0.2) X10*3/uL Abs Immat Gran (auto) (0.00-0.03) X10*3/uL Absolute Neuts (auto) (2.0-8.3) X10*3/uL Absolute Nucleated RBC (0.0-0.012) X10*3/uL Nucleated RBC % (auto) (0.0-0.2) /100WBC PT (9.9-13.0) SEC INR (0.9-1.1) APTT (24.1-38.0) SEC Sodium (135-145) mmol/L Potassium (3.3-5.1) mmol/L Chloride (96-108) mmol/L Carbon Dioxide (22-29) mmol/L Anion Gap (12-20) BUN (9-16) mg/dL Creatinine (0.5-1.4) mg/dL Estim Creat Clear Calc Estimated GFR Random Glucose (60-115) mg/dL Calcium (8.4-10.2) mg/dL Phosphorus (2.7-4.5) mg/dL Magnesium (1.6-2.6) mg/dL Total Bilirubin (0.0-1.0) mg/dL Direct Bilirubin (0.0-0.5) mg/dL AST (5-37) U/L ALT (0-40) U/L Alkaline Phosphatase (39-117) U/L Total Creatine Kinase (38-174) U/L Troponin I High Sens < 3.5 (<3.5-35.0) ng/L Total Protein (6.5-8.0) g/dL Albumin (3.5-5.0) g/dL COVID-19 (ADRY) Negative (Negative) COVID-19 Clin Com See Note NIH Stroke Scale Internal: Initial- Upon Arrival Level of Consciousness: Alert Level of Consciousness Questions: Answers both questions correctly Level of Consciousness Commands: Performs both tasks correctly Best Gaze: Normal Visual: No visual loss Facial Palsy: Normal Motor Arm (Right): No drift Motor Arm (Left): No drift Motor Leg (Right): No drift Motor Leg (Left): No drift Limb Ataxia: Absent Sensory: Normal Best Language: No aphasia Dysarthia: Mild to moderate dysarthria Extinction and Inattention: No abnormality Score: 1 Discharge Plan Discharge Clinical Impression: Seizure, Dysarthria, Ataxic gait Patient Disposition: [facility] Additional Instructions: The CT scan of your brain revealed no new stroke and no bleeding of the brain and was unchanged compared to your CT scan on 06/26/2021. You had a similar presentation on 06/26/2021 and during that admission he had an MRI of your brain which showed no new stroke. Your neurologist felt that your symptoms were caused by a seizure. Your laboratory evaluation today was unremarkable. Your COVID-19 test was normal. I did add a valproic acid level and Keppra level to your blood work drawn today, your neurologist will half to check these results and determine if you need any change in her medications. Follow-up with your doctor in 2 days. Please return to the emergency department if your symptoms get worse or if you develop any symptoms that are concerning to you. Prescriptions: No Action atorvastatin 10 mg tablet 10 mg PO DAILY RF: 0 levetiracetam 500 mg tablet 500 mg PO BID RF: 0 cyanocobalamin (vitamin B-12) 500 mcg Tablet 500 mcg PO DAILY RF: 0 omeprazole 20 mg Capsule,Delayed Release(Dr/Ec) 20 mg PO DAILY RF: 0 cholecalciferol (vitamin D3) 25 mcg (1,000 unit) Tablet 25 mcg PO DAILY RF: 0 bisacodyl 10 mg Suppository 10 mg TX DAILY PRN (Reason: Constipation) RF: 0 folic acid 1 mg Tablet 1 mg PO DAILY 30 Days Qty: 30 RF: 0 thiamine mononitrate (vit B1) 100 mg Tablet 100 mg PO DAILY Qty: 30 RF: 0 valproic acid (as sodium salt) 250 mg/5 mL (5 mL) Solution 250 mg PO TID 30 Days Qty: 450 RF: 0 aspirin 81 mg tablet,delayed release (DR/EC) 81 mg PO DAILY Qty: 30 RF: 0
[2021-07-10 21:50] VITALS: BP 123/86; PULSE 61; RESP 18; TEMP 37; O2SAT 100
[2021-07-10 22:11] LABS: Basophils Percent Auto 0.3 % (0-2); Eosinophils Absolute Auto 0.3 X10*3/uL (0.0-0.4); Eosinophils Percent Auto 4.6 % (0-4); Hematocrit 38.2 % (42-52); Hemoglobin 12.9 g/dl (14.0-18.0); Imm Gran Abs Auto 0.01 X10*3/uL (0.00-0.03); Imm Gran Pct Auto 0.2 % (0.0-0.4); Lymphocytes Absolute Auto 2.3 X10*3/uL (1.2-4.9); Lymphocytes Percent Auto 37.6 % (20-40); MANUAL DIFF FLAG NO; Mean Corpuscular HGB Conc 33.8 g/dl (31.0-36.0); Mean Corpuscular Hemoglobin 29.1 pg (27.0-33.0); Mean Corpuscular Volume 86.2 fL (80-98); Mean Platelet Volume 9.6 fL (9.4-12.4); Monocytes Absolute Auto 0.7 X10*3/uL (0.1-1.2); Monocytes Percent Auto 11.3 % (2-11); Neutrophils Absolute Auto 2.8 X10*3/uL (2.0-8.3); Platelet Count 156 X10*3/uL (160-400); Red Blood Count 4.43 X10*6/uL (4.60-5.80); Red Cell Distribution Width 13.7 % (11.0-16.0); White Blood Count 6.1 X10*3/uL (4.8-10.8)
[2021-07-10 22:19] LABS: Partial Thromboplastin Time 31.4 SEC (24.1-38.0)
[2021-07-10 22:20] LABS: Stroke Lab Use COMPLETE
[2021-07-10 22:24] LABS: COVID-19 Test Negative (Negative)
[2021-07-10 22:32] LABS: Alanine Aminotransferase 14 U/L (0-40); Albumin Level 4.2 g/dL (3.5-5.0); Alkaline Phosphatase 81 U/L (39-117); Anion Gap 12 (12-20); Aspartate Amino Transferase 16 U/L (5-37); Bilirubin Direct 0.2 mg/dL (0.0-0.5); Bilirubin Total 0.4 mg/dL (0.0-1.0); Blood Urea Nitrogen 13 mg/dL (9-16); Calcium 9.2 mg/dL (8.4-10.2); Carbon Dioxide 28 mmol/L (22-29); Chloride 105 mmol/L (96-108); Creatinine Clr Calc Pharmacy 60.2; Estimated Glomerular Filt Rate 52; Glucose Random 86 mg/dL (60-115); Magnesium 2.1 mg/dL (1.6-2.6); Phosphorus 3.6 mg/dL (2.7-4.5); Potassium 4.1 mmol/L (3.3-5.1); Sodium 141 mmol/L (135-145); Total Protein 6.9 g/dL (6.5-8.0)
[2021-07-10 22:38] LABS: Troponin-I High Sensitivity < 3.5 ng/L (<3.5-35.0)
--- NOTE | 2021-07-10 23:02 | PC.NURSE ---
lab notifed of add on by provider
--- NOTE | 2021-07-10 23:13 | PC.NURSE ---
Per provider okay to call mary with update. Update given to Nicolás DAIGLE, verbalized understanding of need for neuro follow up and pcp. no questions.
[2021-07-10 23:22] LABS: Appearance Urine CLEAR; Color Urine YELLOW; Glucose Urine UA NEG (NEG); Leukocyte Esterase Urine NEG (NEG); Nitrite Urine NEG (NEG); Specific Gravity - Urine <= 1.005 (1.005-1.025); Urine Blood NEG (NEG); Urine Ketones NEG (NEG); Urine Protein NEG (NEG-TRACE)
[2021-07-10 23:48] LABS: Valproate < 2.0 mcg/mL (50.0-100.0)
[2021-07-12 09:08] LABS: Glucose, Whole Blood 71 mg/dL (60-115)
[2021-07-15 16:22] LABS: Levetiracetam Keppra 17.8 mcg/mL (12.0-46.0)
== END 2021-07-11 02:17 | disposition skilled nursing facility (03) ==
PROVIDERS: Emergency Provider Emergency Medicine Emergency Medical Services
DX: R56.9 Unspecified convulsions (principal); R47.1 Dysarthria and anarthria; R26.0 Ataxic gait; R29.701 NIHSS score 1; Z20.822 Contact with and (suspected) exposure to COVID-19; Z79.899 Other long term (current) drug therapy; Z87.891 Personal history of nicotine dependence
CPT/HCPCS: 36415; 70450; 80048; 80076; 80164; 80177; 81003; 82550; 82947; 83735; 84100; 84484; 85025; 85610; 85730; 87635; 93005; 99284; 99285

== ENCOUNTER 2021-11-09 12:57 | Outpatient (REF) | payer MEDICARE, MEDICAID, SELFPAY ==
--- NOTE | 2021-11-09 13:11 | EEG_ITS ---
The waking background activity consists of low voltage fast frequencies seen diffusely, intermixed with diffuse theta. Occasional sharp and slow waves are seen intermixed with muscle artifacts. During sleep, symmetrical frontal central sleep spindles develop over both hemispheres. Arousals are frequent without any definite abnormalities. During sleep stages 1, 2, and 3 of sleep are noted. During deeper stages of sleep, there is bifrontal delta. There are several periods of diffuse slowing and muscle artifact. The patient removed the left temporal leads. No diary was submitted. IMPRESSION: This is an abnormal study with diffuse background slowing consistent with diffuse encephalopathic process. No clearly epileptiform discharges seen. MD THERESA Combs/SELMA / [id number]
== END 2021-11-09 12:58 | disposition home or self-care (01) ==
LOC: HO.NEURO 12:57
PROVIDERS: PCP Internal Medicine; Visit Provider Psychiatry & Neurology Neurology
DX: G93.40 Encephalopathy, unspecified (principal); G40.909 Epilepsy, unspecified, not intractable, without status epilepticus
CPT/HCPCS: 95708; 95957

== ENCOUNTER 2021-11-21 15:11 | Emergency (ER) | payer MEDICARE, MEDICAID, SELFPAY ==
--- NOTE | 2021-11-21 | ECG_ITS ---
Test Reason : SEIZURE Blood Pressure : / mmHG Vent. Rate : 057 BPM Atrial Rate : 057 BPM P-R Int : 132 ms QRS Dur : 080 ms QT Int : 418 ms P-R-T Axes : 019 -13 027 degrees QTc Int : 406 ms Sinus bradycardia Otherwise normal ECG When compared with ECG of 10-JUL-2021 21:50, No significant change was found Referred By: Generic ED Physician Electronically Signed By:Brandt Bassett
--- NOTE | ~2021-11-21 | XR_ITS ---
EXAMINATION: XR CHEST CLINICAL INFORMATION: Shortness of breath COMPARISON: 06/26/2021 TECHNIQUE: Frontal view of the chest was obtained. FINDINGS: No significant abnormality is noted involving the heart, lungs, mediastinum, bony thorax or soft tissues. XR/XR chest 1V IMPRESSION: Unremarkable examination.
--- NOTE | ~2021-11-21 | CT_ITS ---
EXAMINATION: CT HEAD WITHOUT CONTRAST CLINICAL INFORMATION: Weakness. COMPARISON: CT brain 07/10/2021. TECHNIQUE: Contiguous axial imaging was performed from the skull base to vertex without intravenous administration of contrast. This CT examination was performed using dose optimization techniques as appropriate, variously including the following: *Automated exposure control *Adjustment of mA and/or kV according to patient size (this includes techniques or standardized protocols for targeted exams where dose is matched to indication/reason for exam; i.e. extremities or head) *Use of iterative reconstruction technique DLP: 668 mGy-cm FINDINGS: There is no evidence of acute intracranial hemorrhage or territorial infarction. No abnormal mass effect or midline shift is seen. [place] to white matter differentiation is well preserved. No extra-axial fluid collections are identified. The lateral ventricles are symmetrical in size and configuration but enlarged. There is no abnormal attenuation within the brain parenchyma. The osseous structures and soft tissues are normal. The mastoid air cells and visualized portions of the paranasal sinuses are well aerated. CT/CT head/brain wo con IMPRESSION: No acute intracranial process seen. No change from previous exam 07/10/2021.
[2021-11-21 15:20] VITALS: BP 148/89; PULSE 61; RESP 18; TEMP 36.8; O2SAT 98; BMI 29.1
[2021-11-21 15:32] VITALS: BP 148/89; PULSE 58; RESP 16; TEMP 36.7; O2SAT 97
--- NOTE | 2021-11-21 16:34 | ED_ITS ---
HPI - Seizure General Chief Complaint: Seizure Stated Complaint: SEIZURE PER SNF POST ICTAL PER EMS Time Seen by Provider: 11/21/21 15:58 History of Present Illness HPI Narrative: Patient has a history of seizures. Currently on Depakote and also on Keppra. The dose of which is unchanged. Recently had a neurology consult. The results of which is unknown to the long-term. senior living sent the patient in today because of an episode of nausea vomiting after lunch. After contacting the long-term. Patient did not have a seizure today. Had the episode of nausea vomiting. Had baseline mental status. Seems like patient is confused. Speech was garbled which is baseline for him. They sent him in for further evaluation. Patient did not have any further nausea vomiting since launch. No fever no chills. No systemic complaints. Patient from [facility]. Related Data Home Medications Medication Instructions Recorded Confirmed atorvastatin 10 mg tablet 10 mg PO DAILY 03/18/21 06/26/21 cholecalciferol (vitamin D3) 25 25 mcg PO DAILY 03/18/21 06/26/21 mcg (1,000 unit) tablet cyanocobalamin (vitamin B-12) 500 500 mcg PO DAILY 03/18/21 06/26/21 mcg tablet levetiracetam 500 mg tablet 500 mg PO BID 03/18/21 06/26/21 omeprazole 20 mg capsule,delayed 20 mg PO DAILY 03/18/21 06/26/21 release bisacodyl 10 mg rectal suppository 10 mg LA DAILY PRN 06/26/21 06/26/21 Previous Rx's Medication Instructions Recorded aspirin 81 mg tablet,delayed 81 mg PO DAILY #30 tab 06/28/21 release folic acid 1 mg tablet 1 mg PO DAILY 30 Days #30 tab 06/28/21 thiamine mononitrate (vit B1) 100 100 mg PO DAILY #30 tab 06/28/21 mg tablet valproic acid (as sodium salt) 250 250 mg (5 mL) PO TID 30 Days #450 06/28/21 mg/5 mL (5 mL) oral solution ml Allergies Allergy/AdvReac Type Severity Reaction Status Date / Time Unable to Assess Allergy Verified 10/23/20 20:05 Review of Systems Verdana 4l Review of Systems: Yes Unobtainable due to mental status Verdana 4d PMFSH Past Medical History Attestation statement: The following information was validated with the patient. Medical History Ataxia Epilepsy Vascular dementia Social History Social History Alcohol intake: unknown Patient Tobacco Use Status: Former Tobacco user Use of substances other than those prescribed or required for medical reasons: Unknown Advance Directives: Yes Advance Directives on File: Yes Advance Directives Date on File: 06/29/21 service: No Current occupational status: unemployed and disabled Physical Exam Verdana 4l Vital Signs: Verdana 4d Verdana 4d Vital Signs: Verdana 4d Verdana 4Bd Last Vital Signs Verdana 4d Varnish Blender New 4d Varnish Blender New 4d Temp 98.1 F 11/21/21 15:32 Varnish Blender New 4d Pulse 58 11/21/21 15:32 Varnish Blender New 4d Resp 16 11/21/21 15:32 BP 148/89 H 11/21/21 15:32 Pulse Ox 97 11/21/21 15:32 BMI result Body Mass Index 29.1 Appearance: Alert. Oriented to self. Thinks he is at the long-term. No acute distress. Eyes: Pupils equal, round and reactive to light. ENT: Pharynx normal. Neck: Normal inspection. Neck supple. No lymph nodes noted. No crepitus CVS: Normal heart rate and rhythm. Pulses normal. Normal S1 and S2 Respiratory: No respiratory distress. Breath sounds normal. No Wheezing. No rales Abdomen: Soft and nontender. No rigidity. No distention. good BS x4 Skin: Skin warm and dry. Normal skin color. Normal skin turgor. Extremities: No lower extremity edema. Neurovascular intact to all extremities. No Lacerations. No Rash Neuro: Oriented X 3. Good strength in upper and lower extremity. No sensory deficit. [id number] was off bilaterally. Positive slurred speech. Positive dysarthria MDM - Seizure MDM Narrative Medical decision making narrative: After discussion with the long-term. Patient's mental status is approximately baseline. Speech approximately baseline. senior living wonders about patient's neurology consult. There has been no change in patient's medication. He is in no acute distress. Labs ordered originally. CT scan of the head was done. Will check for obvious source of infections. Patient's EKG showed a sinus pattern heart rate is 60 LA QRS QT within normal limits is no acute ST segment elevation noted. Urine showed no signs of infection. Hemoglobin is baseline white count is normal chest x-ray showed no focal infiltrate patient's CT scan of the head showed no evidence of bleed. No mass. Patient is in stable condition mental status is baseline no signs of infection will discharge patient home currently in stable condition. Medical Records Attestation: I reviewed the patient's medical records. Lab Data Attestation: I reviewed the patient's lab results. Result diagrams: 11/21/21 16:53 11/21/21 16:53 Labs: Lab Results 11/21/21 11/21/21 11/21/21 Range/Units 16:53 16:53 16:53 WBC 8.6 (4.8-10.8) X10*3/uL RBC 4.90 (4.60-5.80) X10*6/uL Hgb 14.0 (14.0-18.0) g/dl Hct 41.5 L (42.0-52.0) % MCV 84.7 (80.0-98.0) fL MCH 28.6 (27.0-33.0) pg MCHC 33.7 (31.0-36.0) g/dl RDW 13.1 (11.0-16.0) % Plt Count 174 (160-400) X10*3/uL MPV 8.9 L (9.4-12.4) fL Immature Gran % (Auto) 0.5 H (0.0-0.4) % Neut % (Auto) 75.7 H (45-73) % Lymph % (Auto) 16.5 L (20-40) % [place] % (Auto) 6.1 (2-11) % Eos % (Auto) 1.0 (0-4) % Baso % (Auto) 0.2 (0-2) % Lymph # (Auto) 1.4 (1.2-4.9) X10*3/uL [place] # (Auto) 0.5 (0.1-1.2) X10*3/uL Eos # (Auto) 0.1 (0.0-0.4) X10*3/uL Baso # (Auto) 0.0 (0.0-0.2) X10*3/uL Abs Immat Gran (auto) 0.04 H (0.00-0.03) X10*3/uL Absolute Neuts (auto) 6.5 (2.0-8.3) x10*3/uL Absolute Nucleated RBC 0.000 (0.0-0.012) X10*3/uL Nucleated RBC % (auto) 0.0 (0.0-0.2) /100WBC Sodium 140 (135-145) mmol/L Potassium 4.3 (3.3-5.1) mmol/L Chloride 104 (96-108) mmol/L Carbon Dioxide 29 (22-29) mmol/L Anion Gap 11 L (12-20) BUN 15 (9-16) mg/dL Creatinine 1.27 (0.5-1.4) mg/dL Estim Creat Clear Calc 68.4 Estimated GFR 58 Random Glucose 112 (60-115) mg/dL Calcium 9.7 9.8 (8.4-10.2) mg/dL Magnesium 2.0 (1.6-2.6) mg/dL Total Bilirubin 0.7 (0.0-1.0) mg/dL Direct Bilirubin 0.2 (0.0-0.5) mg/dL AST 17 (5-37) U/L ALT 21 (0-40) U/L Alkaline Phosphatase 73 (39-117) U/L Total Protein 7.4 (6.5-8.0) g/dL Albumin 4.4 (3.5-5.0) g/dL Urine Color Urine Appearance Urine pH (5.0-8.0) Ur Specific [place] (1.005-1.025) Urine Protein (NEG-TRACE) MG/DL Urine Glucose (UA) (NEG) MG/DL Urine Ketones (NEG) MG/DL Urine Blood (NEG) Urine Nitrite (NEG) Ur Leukocyte Esterase (NEG) Urine RBC (0) /HPF Urine WBC (0-4) /HPF Ur Squamous Epith Cells /LPF Urine Bacteria /LPF Valproic Acid < 2.0 L (50.0-100.0) mcg/mL 11/21/21 Range/Units 16:53 WBC (4.8-10.8) X10*3/uL RBC (4.60-5.80) X10*6/uL Hgb (14.0-18.0) g/dl Hct (42.0-52.0) % MCV (80.0-98.0) fL MCH (27.0-33.0) pg MCHC (31.0-36.0) g/dl RDW (11.0-16.0) % Plt Count (160-400) X10*3/uL MPV (9.4-12.4) fL Immature Gran % (Auto) (0.0-0.4) % Neut % (Auto) (45-73) % Lymph % (Auto) (20-40) % [place] % (Auto) (2-11) % Eos % (Auto) (0-4) % Baso % (Auto) (0-2) % Lymph # (Auto) (1.2-4.9) X10*3/uL [place] # (Auto) (0.1-1.2) X10*3/uL Eos # (Auto) (0.0-0.4) X10*3/uL Baso # (Auto) (0.0-0.2) X10*3/uL Abs Immat Gran (auto) (0.00-0.03) X10*3/uL Absolute Neuts (auto) (2.0-8.3) x10*3/uL Absolute Nucleated RBC (0.0-0.012) X10*3/uL Nucleated RBC % (auto) (0.0-0.2) /100WBC Sodium (135-145) mmol/L Potassium (3.3-5.1) mmol/L Chloride (96-108) mmol/L Carbon Dioxide (22-29) mmol/L Anion Gap (12-20) BUN (9-16) mg/dL Creatinine (0.5-1.4) mg/dL Estim Creat Clear Calc Estimated GFR Random Glucose (60-115) mg/dL Calcium (8.4-10.2) mg/dL Magnesium (1.6-2.6) mg/dL Total Bilirubin (0.0-1.0) mg/dL Direct Bilirubin (0.0-0.5) mg/dL AST (5-37) U/L ALT (0-40) U/L Alkaline Phosphatase (39-117) U/L Total Protein (6.5-8.0) g/dL Albumin (3.5-5.0) g/dL Urine Color YELLOW Urine Appearance CLEAR Urine pH 6.5 (5.0-8.0) Ur Specific [place] 1.010 (1.005-1.025) Urine Protein NEG (NEG-TRACE) MG/DL Urine Glucose (UA) NEG (NEG) MG/DL Urine Ketones NEG (NEG) MG/DL Urine Blood NEG (NEG) Urine Nitrite NEG (NEG) Ur Leukocyte Esterase NEG (NEG) Urine RBC 0 (0) /HPF Urine WBC 0 (0-4) /HPF Ur Squamous Epith Cells TRACE /LPF Urine Bacteria NONE /LPF Valproic Acid (50.0-100.0) mcg/mL Discharge Plan Discharge Clinical Impression: Epileptic seizure Patient Disposition: Home, Self-Care Instructions: Epilepsy (DC) Prescriptions: No Action atorvastatin 10 mg tablet 10 mg PO DAILY 0RF levetiracetam 500 mg tablet 500 mg PO BID 0RF cyanocobalamin (vitamin B-12) 500 mcg Tablet 500 mcg PO DAILY 0RF omeprazole 20 mg Capsule,Delayed Release(Dr/Ec) 20 mg PO DAILY 0RF cholecalciferol (vitamin D3) 25 mcg (1,000 unit) Tablet 25 mcg PO DAILY 0RF bisacodyl 10 mg Suppository 10 mg LA DAILY PRN (Reason: Constipation) 0RF folic acid 1 mg Tablet 1 mg PO DAILY 30 Days Qty: 30 0RF thiamine mononitrate (vit B1) 100 mg Tablet 100 mg PO DAILY Qty: 30 0RF valproic acid (as sodium salt) 250 mg/5 mL (5 mL) Solution 250 mg PO TID 30 Days Qty: 450 0RF aspirin 81 mg tablet,delayed release (DR/EC) 81 mg PO DAILY Qty: 30 0RF Referrals: Jannette West MD [Primary Care Provider] - 2 days
--- NOTE | 2021-11-21 16:39 | PC.NURSE ---
call placed to [facility]- spoke with nurse taking care of pt at snf per snf pt baseline is garbled speech and word salad not making sense, after lunch pt vomited x1 with continued baseline speech. nurse reports NO seizure activity. denies any medication changes. states he had a recent neuro consult and we wanted to get the report so thats why we sent him out
[2021-11-21 16:59] LABS: MANUAL DIFF FLAG NO
[2021-11-21 17:00] LABS: Appearance Urine CLEAR; Basophils Percent Auto 0.2 % (0-2); Color Urine YELLOW; Eosinophils Absolute Auto 0.1 X10*3/uL (0.0-0.4); Glucose Urine UA NEG (NEG); Hematocrit 41.5 % (42.0-52.0); Imm Gran Abs Auto 0.04 X10*3/uL (0.00-0.03); Imm Gran Pct Auto 0.5 % (0.0-0.4); Leukocyte Esterase Urine NEG (NEG); Lymphocytes Absolute Auto 1.4 X10*3/uL (1.2-4.9); Lymphocytes Percent Auto 16.5 % (20-40); Mean Corpuscular HGB Conc 33.7 g/dl (31.0-36.0); Mean Corpuscular Hemoglobin 28.6 pg (27.0-33.0); Mean Corpuscular Volume 84.7 fL (80.0-98.0); Mean Platelet Volume 8.9 fL (9.4-12.4); Monocytes Absolute Auto 0.5 X10*3/uL (0.1-1.2); Monocytes Percent Auto 6.1 % (2-11); Neutrophils Absolute Auto 6.5 x10*3/uL (2.0-8.3); Neutrophils Percent Auto 75.7 % (45-73); Nitrite Urine NEG (NEG); PH 6.5 (5.0-8.0); Platelet Count 174 X10*3/uL (160-400); Red Cell Distribution Width 13.1 % (11.0-16.0); Urine Blood NEG (NEG); Urine Ketones NEG (NEG); Urine Protein NEG (NEG-TRACE); White Blood Count 8.6 X10*3/uL (4.8-10.8)
[2021-11-21 17:10] LABS: Calcium 9.8 mg/dL (8.4-10.2)
[2021-11-21 17:15] LABS: Alanine Aminotransferase 21 U/L (0-40); Albumin Level 4.4 g/dL (3.5-5.0); Alkaline Phosphatase 73 U/L (39-117); Anion Gap 11 (12-20); Aspartate Amino Transferase 17 U/L (5-37); Bilirubin Direct 0.2 mg/dL (0.0-0.5); Bilirubin Total 0.7 mg/dL (0.0-1.0); Blood Urea Nitrogen 15 mg/dL (9-16); Calcium 9.7 mg/dL (8.4-10.2); Carbon Dioxide 29 mmol/L (22-29); Chloride 104 mmol/L (96-108); Creatinine Clr Calc Pharmacy 68.4; Estimated Glomerular Filt Rate 58; Glucose Random 112 mg/dL (60-115); Potassium 4.3 mmol/L (3.3-5.1); Sodium 140 mmol/L (135-145); Total Protein 7.4 g/dL (6.5-8.0)
[2021-11-21 17:17] LABS: RBC Urine 0 /HPF (0); Squamous Epithelial Cell Urine TRACE /LPF; WBC Urine 0 /HPF (0-4)
[2021-11-21 17:27] LABS: Valproate < 2.0 mcg/mL (50.0-100.0)
--- NOTE | 2021-11-21 19:19 | PC.NURSE ---
Assumed care of pt at 1900. Pt resting in bed, in NAD, respirations even and non-labored. Awaiting transport back to [facility]
[2021-11-21 19:23] VITALS: BP 118/79; PULSE 70; RESP 18; TEMP 36.6; O2SAT 98
== END 2021-11-21 21:09 ==
PROVIDERS: Emergency Provider Emergency Medicine Emergency Medical Services; PCP Internal Medicine
DX: G40.909 Epilepsy, unspecified, not intractable, without status epilepticus (principal); Z87.891 Personal history of nicotine dependence; Z79.899 Other long term (current) drug therapy
CPT/HCPCS: 36415; 70450; 71045; 80048; 80076; 80164; 81001; 82310; 83735; 85025; 93005; 99284